=== PATIENT | female | born 1935 | race Caucasian/White ===

== ENCOUNTER 2016-11-09 07:39 | Day surgery (SDC) | payer MEDICARE, BC ==
[~2016-11-09 07:39] MED LIST: Bupivacaine 0.5% 50 ML MDV ONE; Isosulfan Blue 5 ML SDV ONE; Lidocaine 1% with EPINEPHrine 1:100,000 50 ML MDV ONE
[2016-11-09] MEDS ORDERED: Dextrose 5%-Lactated Ringers 1,000 ML IV SCH (08:00)
[2016-11-09] MEDS ORDERED: Midazolam 1 MG/ML 2 ML SDV ONE (09:37)
[2016-11-09] MEDS ORDERED: Propofol 200 MG/20 ML SDV ONE ×3 (09:37→11:30)
[2016-11-09] MEDS ORDERED: fentaNYL 100 MCG/2 ML SDV ONE (09:37)
[2016-11-09] MEDS ORDERED: Lactated Ringers 1,000 ML ONE (10:43)
[2016-11-09] MEDS ORDERED: Hydrochlorothiazide 25 MG Tab PO ONE (12:45)
[2016-11-09] MEDS ORDERED: Losartan 50 MG Tab PO ONE (12:45)
[2016-11-09 14:39] VITALS: BP 190/79
--- NOTE | 2016-11-12 15:59 | OR ---
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 OPERATIVE PROCEDURES: 1. Fine-needle aspiration of enlarged right axillary lymph nodes with ultrasound guidance x2 ([id number]). 2. Ultrasound-guided excisional biopsy, right breast mass ([id number]). ANESTHESIA: Local plus IV sedation. INDICATION FOR PROCEDURE: An 81-year-old female presenting with a radiologically suspicious mass in the right lateral breast. This also associated with two enlarged lymph nodes in the axilla. Plan is to retrieve fine-needle aspiration of the enlarged axillary lymph nodes as well as guidance ultrasound, ultrasound will also be used intraoperatively to identify the exact location of the mass that appeared to be somewhat within an area of fibrocystic disease laterally. Potential risks including bleeding, infection, and the need for additional treatment if malignancy is identified, were all reviewed, and the patient wishes to proceed. DETAILS OF PROCEDURE: The patient was taken to the operative room after IV sedation was administered. The right breast, axilla, and surrounding areas were prepped and draped. Using the ultrasound, the two enlarged axillary lymph nodes were identified and these were sampled with initially a 20-gauge needle followed by an 18-gauge needle under continued ultrasound guidance with the aspirating syringe. All the specimens were placed in Saccomanno solution. Following this, the location of the mass was identified and the area marked. The area was anesthetized with 1% lidocaine mixed with Marcaine and an oblique transversely oriented incision was made and carried down through the skin and subcutaneous tissue. The underlying mass was then identified and was easily palpable. This was fairly hard and quite suspicious for carcinoma. The deep plane of dissection did not violate the pectoralis major fascia, and the entire mass was grossly removed and soft tissues were then approximated with some 3- 0, 4-0 Vicryl stitch deep, and a 5-0 Vicryl subcuticular stitch. Dressing was applied. The patient was taken to the recovery room in satisfactory condition. David Torres MD /[id number]
--- NOTE | 2016-12-03 16:41 | US ---
ADDENDUM: Pathology shows invasive ductal carcinoma. This is concordant with breast imaging. BI-RADS 6: Known malignancy.
== END 2016-11-09 14:35 | disposition home or self-care (01) ==
LOC: JP.SDS 07:39
PROVIDERS: ATTEND Surgery
DX: D05.11 Intraductal carcinoma in situ of right breast (principal); I10 Essential (primary) hypertension; K21.9 Gastro-esophageal reflux disease without esophagitis; Z88.8 Allergy status to other drugs, medicaments and biological substances; Z91.018 Allergy to other foods; Z95.0 Presence of cardiac pacemaker
CPT/HCPCS: 19125; 38505; 76942; 76998; 88112; 88305; 88341; 88342; 88360; 88361; A9270; J2704; J3010; J7042; J7120; J2250; Q9968

== ENCOUNTER 2016-11-23 08:38 | Inpatient (IN) | payer MEDICARE, BC ==
[~2016-11-23 08:38] MED LIST changes: -Bupivacaine 0.5% 50 ML MDV ONE; +Dexamethasone 4 MG/ML SDV ONE; +Glycopyrrolate 0.2 MG/ML 5 ML MDV ONE; -Isosulfan Blue 5 ML SDV ONE; +Lactated Ringers 1,000 ML ONE; -Lidocaine 1% with EPINEPHrine 1:100,000 50 ML MDV ONE; +Neostigmine Methylsulfate 1 MG/ML 5 ML Syringe ONE; +Ondansetron 4 MG/2 ML SDV ONE; +Propofol 200 MG/20 ML SDV ONE; +Rocuronium 50 MG/5 ML Vial ONE; +Succinylcholine 200 MG/10 ML MDV ONE
[2016-11-23] MEDS ORDERED: Isosulfan Blue 5 ML SDV ONE (09:45)
[2016-11-23] MEDS ORDERED: Acetaminophen 500 MG Tab PO ONE (10:00)
[2016-11-23] MEDS: Dextrose 5%-Lactated Ringers 1,000 ML IV SCH (10:33)
[2016-11-23] MEDS ORDERED: ceFAZolin 2 GM in Sodium Chloride 0.9% 50 ML IV ONE (11:00)
[2016-11-23] MEDS ORDERED: Naloxone 0.4 MG/ML SDV IVPUSH PRN (12:04)
[2016-11-23] MEDS ORDERED: HYDROmorphone/Normal Saline 15 MG/30 ML PCA IV PRN (12:04)
[2016-11-23] MEDS ORDERED: Naloxone 0.4 MG/ML SDV IV PRN (12:06)
[2016-11-23] MEDS: Labetalol 20 MG/4 ML Syringe IVPUSH SCH (13:05)
[2016-11-23] MEDS ORDERED: Hydrochlorothiazide 25 MG Tab PO ONE (13:28)
[2016-11-23] MEDS ORDERED: Losartan 50 MG Tab PO ONE (13:28)
[2016-11-23] MEDS ORDERED: LORazepam 2 MG/ML MDV IVPUSH ONE (13:29)
[2016-11-23] MEDS ORDERED: hydrALAZINE 20 MG/ML SDV IVPUSH ONE (13:30)
[2016-11-23] MEDS ORDERED: Ondansetron 4 MG/2 ML SDV IVPUSH PRN (15:01)
[2016-11-23] MEDS ORDERED: Labetalol 20 MG/4 ML Syringe IVPUSH PRN ×2 (15:02→15:05)
[2016-11-23] MEDS ORDERED: hydrALAZINE 20 MG/ML SDV IVPUSH PRN (15:03)
--- NOTE | 2016-11-23 15:12 | PCM.CONS ---
H&P History of Present Illness - General Date of Service: 11/23/16 Source of Information: Patient, Old Records, RN Notes Reviewed History Limitations: Reports: No Limitations - History of Present Illness Initial Comments - Free Text/Narative: Ms. Esposito is an 81-year-old woman who has been asked to see by Dr. David Torres persistent and managing hypertension. Ms. Esposito underwent a right modified mastectomy earlier today by Dr. Torres, during the immediate postoperative period in the PAR was noted to have marked hypertension. When seen she was very uncomfortable with significant nausea, she had taken her morning beta rios but had not taken Cozaar or hydrochlorothiazide. She had received a dose of IV labetalol with no significant improvement in symptoms. She was given 10 mg of IV hydralazine as well as 0.5 mg of IV lorazepam for management of her nausea. After nausea improve she was given her usual doses of Cozaar and hydrochlorothiazide. With this blood pressure did come under good control and will be monitored after transfer to the medical surgical floor. - Related Data Allergies/Adverse Reactions: Allergies Allergy/AdvReac Type Severity Reaction Status Date / Time hydrocodone Allergy Cannot Verified 11/23/16 12:08 Remember strawberry [[place]] Allergy Hives Verified 11/23/16 09:13 codeine phosphate AdvReac Nausea and Verified 11/23/16 09:13 [From Tylenol-Codeine #3] Vomiting meperidine HCl [From Demerol] AdvReac Nausea and Verified 11/23/16 09:13 Vomiting nitrofurantoin AdvReac Nausea and Verified 11/23/16 09:13 Vomiting oxycodone HCl [From Roxicet] AdvReac Nausea and Verified 11/23/16 09:13 Vomiting sertraline AdvReac Diarrhea Verified 11/23/16 09:13 Home Medications: Home Meds Diphenoxylate HCl/Atropine [Diphenoxylate-Atrop 2.5-0.025] 1 - 2 tab PO QID PRN 07/09/13 [History] LORazepam [Ativan] 0.5 mg PO BID PRN 07/09/13 [History] Multivitamin [Multi-Vitamin Daily] 1 each PO DAILY 07/09/13 [History] Potassium Chloride [Klor-Con M20] 10 meq PO DAILY 07/28/15 [History] Warfarin Sliding Scale [Coumadin Sliding Scale] 1.25 mg PO MOFR 11/13/14 [ History] Calcium Carbonate/Vitamin D2 [Oyster Shell Calcium-Vit D Tab] 800 - 1,000 mg PO DAILY 11/15/14 [History] Warfarin [Coumadin] 2.5 mg PO SUTUWETHSA 11/15/14 [History] Pantoprazole Sodium [Protonix] 40 mg PO DAILY 01/14/15 [History] Losartan/Hydrochlorothiazide [Losartan-HCTZ 100-25 MG] 25 - 100 mg PO DAILY [History] Metoprolol Succinate 50 mg PO BID 11/09/16 [History] Triamcinolone Acetonide 1 film TOP TID 11/09/16 [History] Vitamin B Complex 0.5 tab PO DAILY 11/09/16 [History] Past Medical History HEENT History: Reports: Cataract, Hard of Hearing, Impaired Vision Cardiovascular History: Reports: CAD, High Cholesterol, Hypertension, Pacemaker , SOB on Exertion, Other (See Below) Other Cardiovascular History: mitral and tricuspid valve disease Respiratory History: Reports: SOB Other Respiratory History: na Gastrointestinal History: Reports: Cholelithiasis, Chronic Diarrhea, GERD, Hiatal Hernia, Irritable Bowel Syndrome, Other (See Below) Other Gastrointestinal History: esophageal stricture Genitourinary History: Reports: None 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 PHARMACY TECHNICIAN History: Reports: , Prolapsed Uterus Musculoskeletal History: Reports: Osteoarthritis, Osteoporosis Neurological History: Reports: None Psychiatric History: Reports: Anxiety Endocrine/Metabolic History: Reports: Osteoporosis, Other (See Below) Other Endocrine/Metabolic History: thyroid disease, mulyinodular goiter Hematologic History: Reports: Anesthesia Reaction, Anticoagulation Therapy Oncologic (Cancer) History: Reports: None Dermatologic History: Reports: None - Infectious Disease History Infectious Disease History: Reports: Chicken Pox - Past Surgical History Head Surgeries/Procedures: Reports: None HEENT Surgical History: Reports: Tonsillectomy Cardiovascular Surgical History: Reports: Pacer Respiratory Surgical History: Reports: None GI Surgical History: Reports: Cholecystectomy, Colonoscopy, EGD, Polypectomy Female Surgical History: Reports: Hysterectomy Endocrine Surgical History: Reports: Thyroid Biopsy Neurological Surgical History: Reports: None Musculoskeletal Surgical History: Reports: None Oncologic Surgical History: Reports: None Dermatological Surgical History: Reports: None Social & Family History - Family History Family Medical History: Noncontributory - Tobacco Use Smoking Status *Q: Never Smoker Second Hand Smoke Exposure: No - Caffeine Use Caffeine Use: Reports: None - Alcohol Use Days Per Week of Alcohol Use: 0 - Recreational Drug Use Recreational Drug Use: No - Living Situation & Occupation Living situation: Reports: , Alone Occupation: Retired H&P Review of Systems - Review of Systems: Review Of Systems: See Below General: Denies: Fever, Chills, Weakness HEENT: Reports: No Symptoms Pulmonary: Reports: No Symptoms Cardiovascular: Reports: No Symptoms Gastrointestinal: Reports: Nausea, Vomiting. Denies: Abdominal Pain Exam - Exam Exam: See Below - Vital Signs Vital Signs: Last Vital Signs Temp 96.4 F 11/23/16 14:30 Pulse 70 11/23/16 14:46 Resp 14 11/23/16 14:46 BP 145/62 H 11/23/16 14:46 Pulse Ox 93 L 11/23/16 14:57 Weight: 160 lb 0.008 oz - Exam General: Sedated HEENT: Hearing Intact, Mucosa Moist & [place], Normal Nasal Septum, Posterior Pharynx Clear, Pupils Equal Neck: Supple, Trachea Midline, +2 Carotid Pulse wo Bruit Lungs: Clear to Auscultation, Normal Respiratory Effort Cardiovascular: Regular Rate, Regular Rhythm, Normal S1, Normal S2. No: Systolic Murmur, Diastolic Murmur GI/Abdominal Exam: Normal Bowel Sounds, Soft, Non-Tender Extremities: Normal Inspection, Non-Tender, No Pedal Edema - Patient Data Lab Results Last 24 hrs: Laboratory Results - last 24 hr 11/23/16 11/23/16 11/23/16 Range/Units 09:05 09:05 09:05 WBC 8.5 (4.5-11.0) K/uL RBC 4.42 (3.30-5.50) M/uL Hgb 12.9 (12.0-15.0) g/dL Hct 38.0 (36.0-48.0) % MCV 86 (80-98) fL MCH 29 (27-31) pg MCHC 34 (32-36) % Plt Count 356 (150-400) K/uL PT 12.7 H (9.5-12.0) sec INR 1.18 (0.80-1.20) Sodium 140 (140-148) mmol/L Potassium 3.6 (3.6-5.2) mmol/L Chloride 105 (100-108) mmol/L Carbon Dioxide 24 (21-32) mmol/L Anion Gap 10.6 (5.0-14.0) mmol/L BUN 32 H (7-18) mg/dL Creatinine 1.5 H (0.6-1.0) mg/dL Est Cr Clr Drug Dosing 21.82 mL/min Estimated GFR (MDRD) 33 L (>60) Glucose 101 (74-106) mg/dL Calcium 9.5 (8.5-10.1) mg/dL Phosphorus 3.1 (2.5-4.9) mg/dL Magnesium 1.5 L (1.8-2.4) mg/dL Total Bilirubin 0.8 D (0.2-1.0) mg/dL AST 18 (15-37) U/L ALT 22 (12-78) U/L Alkaline Phosphatase 78 (46-116) U/L [id number] Pept 1314 H (5-450) pg/mL Total Protein 7.9 (6.4-8.2) g/dL Albumin 3.6 (3.4-5.0) g/dL Globulin 4.3 H (2.3-3.5) g/dL Albumin/Globulin Ratio 0.8 L (1.2-2.2) Result Diagrams: 11/23/16 09:05 11/23/16 09:05 Consult PN Assessment/Plan Procedures: Procedures ASSAY OF AMYLASE (07/10/13) ASSAY OF LIPASE (07/10/13) ASSAY OF MAGNESIUM (07/10/13) CLOSTRIDIUM AG IA (07/10/13) COMP SCREEN MAMMOGRAM ADD-ON (06/08/13) COMPLETE CBC AUTOMATED (07/10/13) COMPLETE CBC W/AUTO DIFF WBC (11/16/14) COMPREHEN METABOLIC PANEL (11/16/14) CULTURE SCREEN ONLY (11/15/14) DIAGNOSTIC COLONOSCOPY (01/15/15) ECHO GUIDE FOR BIOPSY (11/09/16) EGD BIOPSY SINGLE/MULTIPLE (11/15/14) EMERGENCY DEPT VISIT (03/26/16) EMERGENCY DEPT VISIT (11/17/14) EMERGENCY DEPT VISIT (11/17/14) EMERGENCY DEPT VISIT (07/10/13) EMERGENCY DEPT VISIT (07/10/13) EXCISION BREAST LESION (11/09/16) HEMOGLOBIN (03/26/16) HYDRATE IV INFUSION ADD-ON (07/10/13) INITIAL OBSERVATION CARE (07/10/13) LEUKOCYTE ASSESSMENT FECAL (07/10/13) METABOLIC PANEL TOTAL CA (07/10/13) NEEDLE BIOPSY LYMPH NODES (11/09/16) OCCULT BLOOD FECES (07/10/13) PROTHROMBIN TIME (03/26/16) REMOVAL OF NAIL BED (02/17/14) ROUTINE VENIPUNCTURE (03/26/16) STOOL CULTR AEROBIC BACT EA (07/10/13) THER/PROPH/DIAG INJ IV PUSH (07/10/13) THER/PROPH/DIAG INJ SC/IM (07/10/13) TRANSVAGINAL US NON-OB (12/13/14) ULTRASOUND BREAST LIMITED (11/04/16) URINALYSIS AUTO W/SCOPE (11/17/14) URINE CULTURE/COLONY COUNT (11/17/14) US EXAM PELVIC COMPLETE (12/13/14) US GUIDE INTRAOP (11/09/16) Problem List Initiated/Reviewed/Updated: Yes My Orders Last 24 Hours: My Active Orders 11/23/16 15:02 Labetalol [Normodyne] 10 mg IVPUSH Q4H PRN 11/23/16 15:03 hydrALAZINE [Apresoline] 5 mg IVPUSH Q4H PRN 11/23/16 21:00 Metoprolol Succinate [Toprol XL] 50 mg PO BID 11/24/16 09:00 Losartan/Hydrochlorothiazide [Losartan-HCTZ 100-25 MG] 25 - 100 mg PO DAILY Plan: ASSESSMENT AND RECOMMENDATIONS HYPERTENSION-uncontrolled hypertension in PAR, likely secondary to having missed morning doses of Cozaar and hydrochlorothiazide as well as discomfort related to severe nausea. Blood pressure improved after her nausea was controlled and she was given her usual doses of Cozaar and hydrochlorothiazide as well as IV labetalol and hydralazine. -Continue usual outpatient antihypertensive therapy including metoprolol, hydrochlorothiazide, and losartan. -When necessary labetalol and hydralazine as needed STATUS POST RIGHT MASTECTOMY Requesting Provider: SUNDEEP Date Consult Requested: 11/23/16 Reason for Consult: Hypertension Patient History Reviewed: Yes
[2016-11-23] MEDS: ceFAZolin 2 GM in Sodium Chloride 0.9% 50 ML IV SCH (16:59)
[2016-11-23] MEDS: Potassium Chloride 20 MEQ Tab.ER PO SCH (18:35)
[2016-11-23] MEDS: Pantoprazole 40 MG Tab.CR PO SCH (18:35)
[2016-11-23] MEDS: Acetaminophen 325 MG Tab PO PRN (18:35)
[2016-11-23] MEDS ORDERED: Metoprolol Succinate 50 MG Tab.ER PO SCH (21:00)
[2016-11-23] MEDS: LORazepam 0.5 MG Tab PO PRN (21:01)
[2016-11-23] MEDS: Metoprolol Tartrate 50 MG Tab PO SCH (21:02)
--- NOTE | 2016-11-24 00:43 | PCM.SN ---
- Free Text/Narrative Note: time : 2330 11/23/16; call from [address] [place] [address]; blood pressure o; resting comfortable, no complaints of pain or headache, blood pressure 170/ 80.p 60 a; hypertension p; continue to monitor. if blood pressure continues to increase or Mrs. Esposito has complaints, has PRN order for Hydralazine 5 mg IVP every 4 hours prn and Labetalol 10mg IVP every 4 hours prn., continue present plan of care..
[2016-11-24] MEDS: ceFAZolin 2 GM in Sodium Chloride 0.9% 50 ML IV SCH ×2 (01:20→10:41)
[2016-11-24] MEDS ORDERED: Furosemide 20 MG/2 ML VIAL IVPUSH STA (03:44)
[2016-11-24] MEDS: Dextrose 5%-Lactated Ringers 1,000 ML IV SCH (04:13)
[2016-11-24] MEDS ORDERED: traMADol 50 MG Tab PO PRN (07:43)
[2016-11-24] MEDS: Potassium Chloride 20 MEQ Tab.ER PO SCH (07:59)
[2016-11-24] MEDS: Metoprolol Tartrate 50 MG Tab PO SCH ×2 (07:59→20:01)
[2016-11-24] MEDS: Losartan 50 MG Tab PO SCH (08:00)
[2016-11-24] MEDS: Hydrochlorothiazide 25 MG Tab PO SCH (08:00)
[2016-11-24] MEDS: Pantoprazole 40 MG Tab.CR PO SCH (08:00)
[2016-11-24] MEDS ORDERED: Potassium Chloride 20 MEQ Tab.ER PO SCH (09:00)
--- NOTE | 2016-11-24 10:08 | PN ---
DATE OF SERVICE: 11/24/2016 SUBJECTIVE: Waqar is postop day 1. She states her pain is controlled. She did have difficulty voiding. She remains to have the Schmitt catheter in. No other concerns or questions related to surgery. She states she does have problems with leg cramping in her upper inner thighs and down front of both legs. She states it is a cramp where she cannot walk and she cannot just wait till the cramp relieves or until the cramp lets up and she is able to walk a little bit but she suggests this happens almost every night. The next concern she has is when she brushes her teeth, her lips burn. REVIEW OF SYSTEMS: Remainder of review of systems negative for any pertinent positives and negatives. OBJECTIVE: GENERAL: Waqar Esposito is an 81-year-old female. She is alert and orientated. VITAL SIGNS: TPR 98.1, 72, 16, and blood pressure 131/54. HEENT: Negative. NECK: Supple. HEART: Regular rate and rhythm. Her dressing is dry and intact. YESSI drains have put out 30 and 35 mL of a light pink drainage respectively. ABDOMEN: Soft and nontender. EXTREMITIES: Without peripheral edema. ASSESSMENT: Right modified radical mastectomy and inspection of sentinel lymph node biopsy for right breast cancer. Date of surgery 11/23/2016. PLAN: 1. Regular diet. 2. Saline lock IV if oral intake adequate. 3. Remove Schmitt on 11/25/2016 at 5 a.m. 4. Tramadol 50 mg q.4 hours p.r.n. pain. 5. 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 6. Check magnesium and phosphorus in regard to leg cramping. 7. We will schedule Oncology appointment for 12/02/2016. 8. Good pulmonary toilet encouraged. 9. We will evaluate p.r.n. or in a.m. 10.We will start Coumadin in a.m. Mallika Anna PA-C /[id number]
[2016-11-24] MEDS: Labetalol 20 MG/4 ML Syringe IVPUSH SCH ×2 (18:30→18:31)
[2016-11-24] MEDS: LORazepam 0.5 MG Tab PO PRN (20:00)
[2016-11-25] MEDS: Pantoprazole 40 MG Tab.CR PO SCH (07:36)
[2016-11-25] MEDS: Potassium Chloride 20 MEQ Tab.ER PO SCH (07:36)
--- NOTE | 2016-11-25 08:36 | PN ---
DATE OF SERVICE: 11/25/2016 SUBJECTIVE: Schmitt was removed at 5:00 a.m. She has not voided yet. Magnesium was a little bit low this morning. Her pain is controlled. She states she was up most of the night, had diarrhea, temp max was 99.8. Oral intake was adequate. REVIEW OF SYSTEMS: Remainder of review of systems negative for any pertinent positives and negatives. OBJECTIVE: GENERAL: Waqar Esposito is an 81-year-old female. VITAL SIGNS: TPR is 98.6, 73, 18. Blood pressure 177/71. HEENT: Negative. NECK: Supple. HEART: Regular rate and rhythm. LUNGS: Clear. Incision looks good. YESSI drains x2 intact. ABDOMEN: Negative. EXTREMITIES: Without peripheral edema. ASSESSMENT: Right modified radical mastectomy and inspection sentinel lymph node biopsy for right breast cancer. Date of surgery 11/23/2016. PLAN: 1. Mag oxide 400 mg p.o. daily. 2. Dressing off, may shower. 3. Resume Coumadin per home orders. 4. Teach to strip empty, measure, and record YESSI drains 4 times a day. 5. We will evaluate p.r.n. or in a.m. 6. Plan discharge in a.m. to go home with daughter. Mallika Anna PA-C /[id number]
[2016-11-25] MEDS: Metoprolol Tartrate 50 MG Tab PO SCH ×2 (09:44→21:57)
[2016-11-25] MEDS: Losartan 50 MG Tab PO SCH (09:44)
[2016-11-25] MEDS: Magnesium Oxide 400 MG Tab PO SCH (09:45)
[2016-11-25] MEDS: Hydrochlorothiazide 25 MG Tab PO SCH (09:45)
[2016-11-25] MEDS: Acetaminophen 325 MG Tab PO PRN (09:48)
[2016-11-25] MEDS ORDERED: hydrALAZINE 10 MG Tab PO ONE (12:48)
[2016-11-25] MEDS ORDERED: Warfarin 2.5 MG Tab PO SCH (13:00)
[2016-11-25] MEDS ORDERED: LORazepam 1 MG Tab PO ONE (15:45)
[2016-11-25] MEDS ORDERED: LORazepam 0.5 MG Tab PO ONE (15:45)
[2016-11-25] MEDS ORDERED: LORazepam 0.5 MG Tab PO PRN (16:48)
[2016-11-25] MEDS ORDERED: Zolpidem 5 MG Tab PO PRN (16:53)
--- NOTE | 2016-11-25 16:53 | PCM.CONSN ---
- General Info Date of Service: 11/25/16 Functional Status: Reports: Pain Controlled, Tolerating Diet, Ambulating - Review of Systems General: Denies: Fever, Chills Cardiovascular: Reports: No Symptoms Gastrointestinal: Reports: No Symptoms Genitourinary: Reports: No Symptoms Systems Review Comment:: Ms. Esposito is an 81-year-old woman with been asked to reevaluate because of of hypertension. She is status post right mastectomy done 2 days ago, I was asked to see her immediately after surgery because of uncontrolled hypertension. Blood pressure improved after she received IV labetalol as well as IV hydralazine and IV lorazepam for nausea. Blood pressures have been high, since then but today have been significantly elevated with a systolic pressure of greater than 200. She currently is treated with beta rios, ARB, and hydrochlorothiazide. She reports that she does feel somewhat anxious and has noted that this feeling contributes to elevated blood pressure in the past. Currently denies significant chest pain or pressure or shortness of breath. - Patient Data Vitals - Most Recent: Last Vital Signs Temp 98.2 F 11/25/16 14:43 Pulse 70 11/25/16 14:43 Resp 16 11/25/16 14:43 BP 218/76 H 11/25/16 14:43 Pulse Ox 96 11/25/16 14:43 Weight - Most Recent: 160 lb 0.008 oz I&O - Last 24 Hours: Intake & Output 11/25/16 11/25/16 11/25/16 06:59 14:59 22:59 Intake Total 290 510 Output Total 697 490 60 Balance -407 20 -60 Lab Results Last 24 Hours: Laboratory Results - last 24 hr 11/23/16 Range/Units 09:05 CA 27-29 19 (0-40) U/mL Med Orders - Current: Current Medications Acetaminophen (Tylenol) 650 mg PO Q6H PRN PRN Reason: PAIN Last Admin: 11/25/16 09:48 Dose: 650 mg Hydralazine HCl (Apresoline) 5 mg IVPUSH Q4H PRN PRN Reason: Hypertension Hydralazine HCl (Apresoline) 10 mg PO Q6H LILI Hydrochlorothiazide (Hydrochlorothiazide) 25 mg PO DAILY LILI Last Admin: 11/25/16 09:45 Dose: 25 mg Dextrose/Lactated Ringer's (Dextrose 5%-Lactated Ringers) 1,000 mls @ 100 mls/ hr IV ASDIRECTED [facility] Last Admin: 11/24/16 04:13 Dose: 100 mls/hr Labetalol HCl (Normodyne) 10 mg IVPUSH Q4H PRN; Protocol PRN Reason: Hypertension Loperamide HCl (Imodium) 2 mg PO Q4H PRN PRN Reason: Diarrhea Lorazepam (Ativan) 0.5 mg PO BID PRN PRN Reason: ANXIETY Last Admin: 11/24/16 20:00 Dose: 0.5 mg Lorazepam (Ativan) 0.5 mg PO Q4H PRN PRN Reason: Anxiety Losartan Potassium (Cozaar) 100 mg PO DAILY [facility] Last Admin: 11/25/16 09:44 Dose: 100 mg Magnesium Oxide (Magnesium Oxide) 400 mg PO DAILY [facility] Last Admin: 11/25/16 09:45 Dose: 400 mg Metoprolol Tartrate (Lopressor) 50 mg PO BID [facility] Last Admin: 11/25/16 09:44 Dose: 50 mg Naloxone HCl (Narcan) 0.1 mg IV ASDIRECTED PRN PRN Reason: decreased respiratory rate Ondansetron HCl (Zofran) 4 mg IVPUSH Q4H PRN PRN Reason: NAUSEA Last Admin: 11/23/16 16:59 Dose: 4 mg Pantoprazole Sodium (Protonix) 40 mg PO ACBREAKFAST [facility] Last Admin: 11/25/16 07:36 Dose: 40 mg Potassium Chloride (Klor-Con M20) 20 meq PO DAILY@0800 [facility] Last Admin: 11/25/16 07:36 Dose: 20 meq Tramadol HCl (Ultram) 50 mg PO Q4H PRN PRN Reason: Pain Warfarin Sodium (Coumadin) 2.5 mg PO SuTuWeThSa@1300 [facility] Last Admin: 11/25/16 12:56 Dose: 2.5 mg Warfarin Sodium (Coumadin) 1.25 mg PO MoFr@1300 [facility] Discontinued Medications Acetaminophen (Tylenol Extra Strength) 1,000 mg PO ONETIME ONE Stop: 11/23/16 10:01 Last Admin: 11/23/16 10:36 Dose: 1,000 mg Dexamethasone (Dexamethasone) Confirm Administered Dose 4 mg .ROUTE .STK-MED ONE Stop: 11/23/16 08:20 Fentanyl Citrate (Fentanyl 0.05 Mg/Ml Vial) Confirm Administered Dose 50 mcg .ROUTE .STK-MED ONE Stop: 11/23/16 08:20 Furosemide (Lasix) 10 mg IVPUSH ONETIME STA Stop: 11/24/16 03:45 Last Admin: 11/24/16 04:16 Dose: 10 mg Glycopyrrolate (Robinul) Confirm Administered Dose 1 mg .ROUTE .STK-MED ONE Stop: 11/23/16 08:20 Hydralazine HCl (Apresoline) 10 mg IVPUSH ONETIME ONE Stop: 11/23/16 13:31 Last Admin: 11/23/16 13:20 Dose: 10 mg Hydralazine HCl (Apresoline) 10 mg PO ONETIME ONE Stop: 11/25/16 12:49 Last Admin: 11/25/16 12:55 Dose: 10 mg Hydrochlorothiazide (Hydrochlorothiazide) 25 mg PO ONETIME ONE Stop: 11/23/16 13:29 Last Admin: 11/23/16 13:38 Dose: 25 mg Hydromorphone HCl (Dilaudid Scoring Machine Operator 15 Mg In Ns 30 Ml) 0 mg IV ASDIRECTED PRN; Protocol PRN Reason: Pain Last Admin: 11/23/16 12:10 Dose: 0.3 mg Cefazolin Sodium 2 gm/ Sodium (Chloride) 50 mls @ 100 mls/hr IV ONCALL ONE Stop: 11/23/16 11:29 Last Admin: 11/23/16 10:45 Dose: 100 mls/hr Lactated Ringer's (Ringers, Lactated) Confirm Administered Dose 1,000 mls @ as directed .ROUTE .STK-MED ONE Stop: 11/23/16 08:31 Lactated Ringer's (Ringers, Lactated) Confirm Administered Dose 1,000 mls @ as directed .ROUTE .STK-MED ONE Stop: 11/23/16 08:31 Cefazolin Sodium 2 gm/ Sodium (Chloride) 50 mls @ 100 mls/hr IV Q8H LILI Stop: 11/24/16 10:29 Last Admin: 11/24/16 10:41 Dose: 100 mls/hr Isosulfan Blue (Lymphazurin 1%) Confirm Administered Dose 5 ml .ROUTE .STK-MED ONE Stop: 11/23/16 09:46 Last Admin: 11/23/16 11:39 Dose: 5 ml Labetalol HCl (Normodyne) 5 - 10 mg IVPUSH Q5M LILI PRN Reason: Protocol Stop: 11/23/16 13:30 Last Admin: 11/24/16 18:31 Dose: Not Given Labetalol HCl (Normodyne) 5 - 10 mg IVPUSH Q1H PRN PRN Reason: SBP>=165 OR DBP >=95 Lorazepam (Ativan) 0.5 mg IVPUSH ONETIME ONE Stop: 11/23/16 13:30 Last Admin: 11/23/16 13:40 Dose: 0.5 mg Lorazepam (Ativan) 0.5 mg PO ONETIME ONE Stop: 11/25/16 15:46 Last Admin: 11/25/16 16:17 Dose: 0.5 mg Losartan Potassium (Cozaar) 100 mg PO ONETIME ONE Stop: 11/23/16 13:29 Last Admin: 11/23/16 13:39 Dose: 100 mg Metoprolol Succinate (Toprol Xl) 50 mg PO BID [facility] Neostigmine Methylsulfate (Neostigmine) Confirm Administered Dose 5 mg .ROUTE .STK-MED ONE Stop: 11/23/16 08:20 Non-Formulary Medication (Losartan/Hydrochlorothiazide [Losartan-Hctz 100-25 Mg] ) 25 - 100 mg PO DAILY [facility] Ondansetron HCl (Zofran) Confirm Administered Dose 4 mg .ROUTE .STK-MED ONE Stop: 11/23/16 08:20 Ondansetron HCl (Zofran) Confirm Administered Dose 4 mg .ROUTE .STK-MED ONE Stop: 11/23/16 08:30 Propofol (Diprivan 20 Ml) Confirm Administered Dose 200 mg .ROUTE .STK-MED ONE Stop: 11/23/16 08:20 Rocuronium [place] (Zemuron) Confirm Administered Dose 50 mg .ROUTE .STK-MED ONE Stop: 11/23/16 08:20 Succinylcholine Chloride (Quelicin) Confirm Administered Dose 200 mg .ROUTE .STK -MED ONE Stop: 11/23/16 08:20 - Exam Quality Assessment: DVT Prophylaxis General: Alert, Oriented, Cooperative, No Acute Distress Lungs: Clear to Auscultation, Normal Respiratory Effort Cardiovascular: Regular Rate, Regular Rhythm, No Murmurs GI/Abdominal Exam: Normal Bowel Sounds, Soft, Non-Tender, No Distention Extremities: Normal Inspection, Normal Range of Motion, Non-Tender, No Pedal Edema Skin: Warm, Dry, Intact Consult PN Assessment/Plan Procedures: Procedures ASSAY OF AMYLASE (07/10/13) ASSAY OF LIPASE (07/10/13) ASSAY OF MAGNESIUM (07/10/13) CLOSTRIDIUM AG IA (07/10/13) COMP SCREEN MAMMOGRAM ADD-ON (06/08/13) COMPLETE CBC AUTOMATED (07/10/13) COMPLETE CBC W/AUTO DIFF WBC (11/16/14) COMPREHEN METABOLIC PANEL (11/16/14) CULTURE SCREEN ONLY (11/15/14) DIAGNOSTIC COLONOSCOPY (01/15/15) ECHO GUIDE FOR BIOPSY (11/09/16) EGD BIOPSY SINGLE/MULTIPLE (11/15/14) EMERGENCY DEPT VISIT (03/26/16) EMERGENCY DEPT VISIT (11/17/14) EMERGENCY DEPT VISIT (11/17/14) EMERGENCY DEPT VISIT (07/10/13) EMERGENCY DEPT VISIT (07/10/13) EXCISION BREAST LESION (11/09/16) HEMOGLOBIN (03/26/16) HYDRATE IV INFUSION ADD-ON (07/10/13) INITIAL OBSERVATION CARE (07/10/13) LEUKOCYTE ASSESSMENT FECAL (07/10/13) METABOLIC PANEL TOTAL CA (07/10/13) NEEDLE BIOPSY LYMPH NODES (11/09/16) OCCULT BLOOD FECES (07/10/13) PROTHROMBIN TIME (03/26/16) REMOVAL OF NAIL BED (02/17/14) ROUTINE VENIPUNCTURE (03/26/16) STOOL CULTR AEROBIC BACT EA (07/10/13) THER/PROPH/DIAG INJ IV PUSH (07/10/13) THER/PROPH/DIAG INJ SC/IM (07/10/13) TRANSVAGINAL US NON-OB (12/13/14) ULTRASOUND BREAST LIMITED (11/04/16) URINALYSIS AUTO W/SCOPE (11/17/14) URINE CULTURE/COLONY COUNT (11/17/14) US EXAM PELVIC COMPLETE (12/13/14) US GUIDE INTRAOP (11/09/16) Problem List Initiated/Reviewed/Updated: Yes My Orders Last 24 Hours: My Active Orders 11/25/16 16:48 LORazepam [Ativan] 0.5 mg PO Q4H PRN 11/25/16 17:00 hydrALAZINE [Apresoline] 10 mg PO Q6H Plan: ASSESSMENT AND RECOMMENDATIONS HYPERTENSION-systolic pressure elevated again today greater than 200. -Continue usual outpatient antihypertensive therapy including metoprolol, hydrochlorothiazide, and losartan. -Hydralazine 10 mg by mouth every 6 hours -Lorazepam 0.5 mg by mouth every 4 hours as needed for anxiety STATUS POST RIGHT MASTECTOMY
[2016-11-25] MEDS ORDERED: Ondansetron 4 MG Tab.DIS PO PRN (17:01)
[2016-11-25] MEDS: hydrALAZINE 10 MG Tab PO SCH ×2 (17:35→22:02)
[2016-11-25] MEDS: Loperamide 2 MG Cap PO PRN (18:18)
[2016-11-26] MEDS: hydrALAZINE 10 MG Tab PO SCH (04:54)
[2016-11-26 07:17] VITALS: BP 176/75
[2016-11-26] MEDS: Losartan 50 MG Tab PO SCH (08:18)
[2016-11-26] MEDS: Hydrochlorothiazide 25 MG Tab PO SCH (08:18)
[2016-11-26] MEDS: Potassium Chloride 20 MEQ Tab.ER PO SCH (08:19)
[2016-11-26] MEDS: Metoprolol Tartrate 50 MG Tab PO SCH (08:19)
[2016-11-26] MEDS: Pantoprazole 40 MG Tab.CR PO SCH (08:21)
[2016-11-26] MEDS: Magnesium Oxide 400 MG Tab PO SCH (08:21)
[2016-11-26] MEDS: Loperamide 2 MG Cap PO PRN (09:12)
--- NOTE | 2016-11-27 00:24 | DISCH ---
ADMISSION DIAGNOSES: Right breast cancer, hypertension, irritable bowel syndrome, chronic atrial fib, chronic anticoagulation therapy, osteoporosis, mitral valve insufficiency, atrial valve insufficiency, pulmonary valve disorders, multinodular goiter, history of pacemaker, pulmonary nodules, thyroid mass, symptomatic bradycardia, hyperlipidemia. DISCHARGE DIAGNOSIS: Right modified radical mastectomy and inspection of sentinel lymph node biopsy for right breast cancer. Date of surgery 11/23/2016. HISTORY: Waqar Esposito had a right breast lump with a fine-needle biopsy which indicated cancer cells. After preoperative evaluation, discussion of possible risks and possible complications, she wished to proceed with surgical procedure. HOSPITAL COURSE: Waqar had her surgery on 11/23/2016. She had no operative complications. On postop day 1, she had difficulty with hypertension. She did have an Internal Med consult. Her pain was well managed and her activity was good and she was started on a regular diet. On postop day 2, her Schmitt catheter was removed and she did void. She was started on magnesium oxide for leg cramping, which has been ongoing and the postop teaching was started regarding her care of her YESSI drains. On 11/25/2016, she continued to progress well with the exception of elevated blood pressure. She was started on Apresoline 10 mg every 6 hours in addition to her Cozaar and Lopressor. Her blood pressure did decrease. The pain was well managed. Activity was good and she was ready to be discharged to home on 11/26/2016. PHYSICAL EXAMINATION: GENERAL: Waqar Esposito is an 81-year-old female. VITAL SIGNS: Height is 5 feet 1 inch, weight is 160 pounds. TPR 99.7, 83, 18. Blood pressure 176/75. HEENT: Negative. NECK: Supple. HEART: Regular rate and rhythm. LUNGS: Clear. BREASTS: Right mastectomy site, she has the YESSI drains that are intact draining a light pink serous drainage of 85 and 130 mL respectively. Hannah intact. No hematoma or drainage from stapled incision. EXTREMITIES: Without peripheral edema. ABDOMEN: Soft and nontender. DISPOSITION: Discharged to home. CONDITION: Stable and improving. FOLLOWUP APPOINTMENT: With David Torres MD at the [facility] on 12/02/2016 at 1 p.m. HOME MEDICATIONS: 1. Mag oxide 400 mg p.o. daily, #100. 2. Apresoline 10 mg oral q.6 hours #120. 3. Tramadol 50 mg q.4 hours p.r.n. pain #30. 4. She is to resume her home medications as she was taking prior to admission. 5. Calcium carbonate 800-1000 mg oral daily. 6. Diphenoxylate HCL atropine 1-2 every 4 hours p.r.n. diarrhea. 7. Ativan 0.5 mg oral b.i.d. anxiety. 8. Losartan HCTZ 100/25 one daily. 9. Metoprolol succinate 50 mg twice daily. 10.Multivitamin one daily. 11.Protonix 40 mg oral daily. 12.Klor-Con 20 mEq oral daily. 13.Triamcinolone cream one, three times a day p.r.n. to rash. 14.Vitamin B complex 0.5 mg oral daily. 15.Warfarin 1.25 mg oral every Wednesday and Wednesday and warfarin 2.5 mg oral Wednesday, Wednesday, Wednesday, , and Wednesday. DISCHARGE DIET: Usual diet as tolerated. Drink 8 to 10 glasses of water a day. DISCHARGE INSTRUCTIONS: No lifting greater than 10 pounds for 6 weeks. Activity, walk 8 times daily. Driving, do not drive on pain medication. Shower bathing, may shower. Notify provider if any fever, increased pain, nausea, or vomiting. Keep site clean and dry. Wound incision care. Strip, empty, measure, and record YESSI drains 4 times a day and bring record of drainage to clinic. SPECIAL INSTRUCTION: Use incentive spirometer 10 times every hour while awake.
[2016-11-27] MEDS ORDERED: Warfarin 2.5 MG Tab PO SCH (13:00)
--- NOTE | 2016-11-30 13:10 | OR ---
DATE OF PROCEDURE: 11/23/2016 PREOPERATIVE DIAGNOSIS: Carcinoma of right breast. POSTOPERATIVE DIAGNOSIS: Carcinoma of right breast with sentinel lymph nodes negative for metastatic disease. OPERATIVE PROCEDURES: 1. Right modified radical mastectomy with sentinel lymph node biopsy (89826). 2. Injection procedure for identification of sentinel lymph nodes ([id number]). ANESTHESIA: General. UNMANNED EQUIPMENT OPERATOR: Mallika Anna PA-C. 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 After preoperative evaluation and discussion, she wished to proceed with a mastectomy procedure. Potential risks including bleeding, infection, local or distant tumor recurrence, need for additional treatment depending on the pathologic findings, as well as remote possibility of cardiopulmonary, septic, or hemorrhagic complications leading to , and the patient wishes to proceed. DETAILS OF PROCEDURE: The patient was taken to the operating room and placed in the supine position. After general endotracheal anesthesia was induced, 4 mL of Isosulfan blue dye was then placed in the subdermal skin adjacent to the biopsy site. Following this, the right breast, axilla, and surrounding areas were prepped and draped. A standard elliptical incision was made around the nipple areolar complex and widely away from the biopsy site. It was carried down through the skin and subcutaneous tissue. Subcutaneous flaps were then raised superiorly, inferolaterally, and medially to the usual extent. The dissection was then continued down towards the right axilla. Following the blue-stained lymphatics, this led to a group of nodes that had some blue dye within them. This along with some adjacent lymphatic tissue was then excised and sent for a sentinel node analysis. The pathology reported no evidence of metastatic disease within the sentinel lymph nodes. At that point, the breast was reflected off the chest wall in continuity with pectoralis major fascia and delivered from the field. The area was inspected. No bleeding or other problems were noted. Two Jose Francisco-Lora drains were then placed through a stab wound inferior to the main incision and the incision was then closed with some 3-0 Vicryl stitch deep and halle for the skin. Drains were affixed with some 3-0 Vicryl as well and the patient was taken to the recovery room in satisfactory condition. There were no evident complications. The physician speech language pathologist assistant, Mallika Anna PA-C, played an essential role in assisting in this case, helping to position the patient, to retract structures as needed, as well as suturing and cutting sutures when indicated. Her presence improved the patient's safety and decreased operative time. David Torres MD /[id number]
== END 2016-11-26 12:30 | disposition home or self-care (01) | DRG 581 ==
LOC: JP.SDS 08:38 → JP.SDSSCHI 08:38 → JP.2SS 11:50 → EDSTATUS 14:10
PROVIDERS: ADMIT Surgery; ATTEND Surgery
PROC: 0HTT0ZZ Resection of Right Breast, Open Approach (ICD-10-PCS; principal; 2016-11-23)
PROC: 07B50ZX Excision of Right Axillary Lymphatic, Open Approach, Diagnostic (ICD-10-PCS; 2016-11-23)
DX: C50.911 Malignant neoplasm of unspecified site of right female breast (principal); I10 Essential (primary) hypertension; I48.91 Unspecified atrial fibrillation; E04.2 Nontoxic multinodular goiter; R91.8 Other nonspecific abnormal finding of lung field; E07.9 Disorder of thyroid, unspecified; R00.1 Bradycardia, unspecified; E78.5 Hyperlipidemia, unspecified; I25.10 Atherosclerotic heart disease of native coronary artery without angina pectoris; E78.00 Pure hypercholesterolemia, unspecified; F41.9 Anxiety disorder, unspecified; Z79.01 Long term (current) use of anticoagulants; Z88.8 Allergy status to other drugs, medicaments and biological substances; Z79.899 Other long term (current) drug therapy; Z95.0 Presence of cardiac pacemaker
CPT/HCPCS: 36415; 80053; 83735; 83880; 84100; 85027; 85610; 86300; 88307; 88331; 88341; 88342; 93005; 97161-GP; A9270-GY; J0330; J0360; J0690; J1100; J1170; J1940; J2060; J2405; J2704; J2710; J3010; J7042; J7050; J7120; Q9968

== ENCOUNTER 2016-11-29 11:30 | Emergency (ER) | payer MEDICARE, BC ==
[2016-11-29 12:11] VITALS: BP 197/69
--- NOTE | 2016-11-29 12:41 | EDM.PDOC ---
ED HPI GENERAL MEDICAL PROBLEM - General Chief Complaint: General Stated Complaint: SWELLING/HAD SURGERY Time Seen by Provider: 11/29/16 12:15 Source of Information: Reports: Patient, Family History Limitations: Reports: No Limitations - History of Present Illness INITIAL COMMENTS - FREE TEXT/NARRATIVE: Patient presents today with increase of edema and pain to medial right breast mastectomy incision. YESSI drain plugged, no drainage for 8 hours. Patient denies fever, chills, nausea. Onset: Today Right Arm Pain Score (Numeric/FACES): 0 - Related Data Allergies Allergy/AdvReac Type Severity Reaction Status Date / Time hydrocodone Allergy Cannot Verified 11/29/16 12:15 Remember strawberry [[place]] Allergy Hives Verified 11/29/16 12:15 codeine phosphate AdvReac Nausea and Verified 11/29/16 12:15 [From Tylenol-Codeine #3] Vomiting meperidine HCl [From Demerol] AdvReac Nausea and Verified 11/29/16 12:15 Vomiting nitrofurantoin AdvReac Nausea and Verified 11/29/16 12:15 Vomiting oxycodone HCl [From Roxicet] AdvReac Nausea and Verified 11/29/16 12:15 Vomiting sertraline AdvReac Diarrhea Verified 11/29/16 12:15 Home Meds: Home Meds Diphenoxylate HCl/Atropine [Diphenoxylate-Atrop 2.5-0.025] 1 - 2 tab PO QID PRN 07/09/13 [History] LORazepam [Ativan] 0.5 mg PO BID PRN 07/09/13 [History] Multivitamin [Multi-Vitamin Daily] 1 each PO DAILY 07/09/13 [History] Potassium Chloride [Klor-Con M20] 20 meq PO DAILY 11/13/14 [History] Warfarin Sliding Scale [Coumadin Sliding Scale] 1.25 mg PO MOFR 11/13/14 [ History] Calcium Carbonate/Vitamin D2 [Oyster Shell Calcium-Vit D Tab] 800 - 1,000 mg PO DAILY 11/15/14 [History] Warfarin [Coumadin] 2.5 mg PO SUTUWETHSA 11/15/14 [History] Pantoprazole Sodium [Protonix] 40 mg PO DAILY 01/14/15 [History] Losartan/Hydrochlorothiazide [Losartan-HCTZ 100-25 MG] 25 - 100 mg PO DAILY [History] Metoprolol Succinate 50 mg PO BID 11/09/16 [History] Triamcinolone Acetonide 1 film TOP TID 11/09/16 [History] Vitamin B Complex 0.5 tab PO DAILY 11/09/16 [History] Magnesium Oxide 400 mg PO DAILY #100 tablet 11/26/16 [Rx] hydrALAZINE [Apresoline] 10 mg PO Q6H #120 tablet 11/26/16 [Rx] traMADol [Ultram] 50 mg PO Q4H PRN #30 tablet 11/26/16 [Rx] Past Medical History HEENT History: Reports: Cataract, Hard of Hearing, Impaired Vision Cardiovascular History: Reports: CAD, High Cholesterol, Hypertension, Pacemaker , SOB on Exertion, Other (See Below) Other Cardiovascular History: mitral and tricuspid valve disease Respiratory History: Reports: SOB Other Respiratory History: na Gastrointestinal History: Reports: Cholelithiasis, Chronic Diarrhea, GERD, Hiatal Hernia, Irritable Bowel Syndrome, Other (See Below) Other Gastrointestinal History: esophageal stricture Genitourinary History: Reports: None 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: , Prolapsed Uterus Musculoskeletal History: Reports: Osteoarthritis, Osteoporosis Neurological History: Reports: None Psychiatric History: Reports: Anxiety Endocrine/Metabolic History: Reports: Osteoporosis, Other (See Below) Other Endocrine/Metabolic History: thyroid disease, mulyinodular goiter Hematologic History: Reports: Anesthesia Reaction, Anticoagulation Therapy Oncologic (Cancer) History: Reports: Breast Dermatologic History: Reports: None - Infectious Disease History Infectious Disease History: Reports: Chicken Pox - Past Surgical History Head Surgeries/Procedures: Reports: None HEENT Surgical History: Reports: Tonsillectomy Cardiovascular Surgical History: Reports: Pacer Respiratory Surgical History: Reports: None GI Surgical History: Reports: Cholecystectomy, Colonoscopy, EGD, Polypectomy Female Surgical History: Reports: Hysterectomy Endocrine Surgical History: Reports: Thyroid Biopsy Neurological Surgical History: Reports: None Musculoskeletal Surgical History: Reports: None Oncologic Surgical History: Reports: Mastectomy Dermatological Surgical History: Reports: None Social & Family History - Family History Family Medical History: Noncontributory - Tobacco Use Smoking Status *Q: Never Smoker Second Hand Smoke Exposure: No - Caffeine Use Caffeine Use: Reports: None - Alcohol Use Days Per Week of Alcohol Use: 0 - Recreational Drug Use Recreational Drug Use: No - Living Situation & Occupation Living situation: Reports: , Alone Occupation: Retired ED ROS GENERAL - Review of Systems Review Of Systems: See Below Constitutional: Reports: Weakness. Denies: Fever, Chills, Malaise HEENT: Reports: No Symptoms Respiratory: Denies: Shortness of Breath, Wheezing, Cough, Sputum Cardiovascular: Denies: Chest Pain, Blood Pressure Problem, Dyspnea on Exertion , Edema, Lightheadedness, Palpitations, PND, Syncope Endocrine: Reports: No Symptoms GI/Abdominal: Reports: No Symptoms : Reports: No Symptoms Musculoskeletal: Reports: Shoulder Pain, Other (Status post right mastectomy) Skin: Reports: Other (redness without erythema or fluctuance to right medial breast incision, tenderness noted. ) Neurological: Reports: No Symptoms Psychiatric: Reports: No Symptoms Hematologic/Lymphatic: Reports: No Symptoms Immunologic: Reports: No Symptoms ED EXAM, GENERAL - Physical Exam Exam: See Below Free Text/Narrative:: Waqar is an alert, oriented and pleasant 81 year old female who had a right mastectomy with YESSI drain placement x 2 on . She reports no drainage from drain #2 for at least 8 hours. It was noted the drain was plugged, tubing milked and new bulb placed. Drain began working well. Slight area of redness noted to medial incision without erythema or fluctuance. Areas of redness marked with a skin marker. Follow up appointment with Dr. Jannet Torres on 12/02/16. Exam Limited By: No Limitations General Appearance: Alert, WD/WN, No Apparent Distress Eye Exam: Bilateral Eye: EOMI, PERRL Ears: Normal External Exam, Normal Canal, Hearing Grossly Normal, Normal TMs Ear Exam: Bilateral Ear: Auricle Normal, Canal Normal, TM normal Nose: Normal Inspection, Normal Mucosa, No Blood Throat/Mouth: Normal Inspection, Normal Lips, Normal Oropharynx, Normal Voice, No Airway Compromise Head: Atraumatic, Normocephalic Neck: Normal Inspection, Supple, Non-Tender, Full Range of Motion. No: Lymphadenopathy (R), Lymphadenopathy (L) Respiratory/Chest: No Respiratory Distress, Lungs Clear, Normal Breath Sounds, No Accessory Muscle Use, Chest Non-Tender Cardiovascular: Normal Peripheral Pulses, Regular Rate, Rhythm, No Edema, No Gallop, No Murmur, No Rub Peripheral Pulses: 2+: Radial (L), Radial (R), Dorsalis Pedis (L), Dorsalis Pedis (R) GI/Abdominal: Normal Bowel Sounds, Soft, Non-Tender, No Organomegaly, No Distention, No Abnormal Bruit, No Mass Back Exam: Normal Inspection, Full Range of Motion. No: CVA Tenderness (R), CVA Tenderness (L) Extremities: Normal Inspection, Normal Range of Motion, Non-Tender, No Pedal Edema, Normal Capillary Refill Neurological: Alert, Oriented, CN II-XII Intact, Normal Cognition, Normal Gait, No Motor/Sensory Deficits Psychiatric: Normal Affect, Normal Mood Skin Exam: Warm, Dry, Intact, No Rash, Wound/Incision, Other (Right mastectomy incision intact, redness noted to medial incision line, areas marked with skin marker. No fluctuance or drainage. Tenderness with palpation to areas of redness. ). No: Erythema, Increased Warmth Lymphatic: No Adenopathy ED GENERAL MEDICAL PROCEDURES - Additional/Other Procedure(s) Other (Free Text) Procedure(s): YESSI bulb #2 replaced using sterile technique without difficulty, good suction noted. Course - Vital Signs Last Recorded V/S: Last Vital Signs Temp 36.4 C 11/29/16 12:10 Pulse 81 11/29/16 12:10 Resp 16 11/29/16 12:10 BP 197/69 H 11/29/16 12:10 Pulse Ox 97 11/29/16 12:10 - Re-Assessments/Exams Free Text/Narrative Re-Assessment/Exam: 11/29/16 12:50 Education on good hand washing, care of incision, continued documentation of YESSI drain provided to patient, her son and daughter in law. All Questions answered. Departure - Departure Time of Disposition: 12:49 Disposition: Home, Self-Care 01 Condition: Good Clinical Impression: Status post right mastectomy, YESSI drain, broken - Discharge Information Instructions: Total or Modified Radical Mastectomy, Care After Referrals: Shahram Hirsch MD [Primary Care Provider] - Forms: ED Department Discharge Additional Instructions: Your YESSI drain was plugged today, we have milked the drain and it is working now. We have also replaced the bulb. Continue to track your drainage. Wash you hands prior to handling of the YESSI drains or being near your incision. There is a small area of redness around your incision. This area was marked with a skin marker to note if the area spreads or not. Take the Septra DS 1 tablet by mouth twice per day for 7 days. Follow up with Dr. Torres as scheduled on 12/02/16. Return to clinic earlier for issues, concerns or any worsening. Keep yourself hydrated, eat healthy and take acteminophen (tylenol) as needed for pain. - Problem List Review Problem List Initiated/Reviewed/Updated: Yes - Assessment/Plan Assessment:: YESSI drain plugged, new bulb placed to #2 YESSI. Incision has redness without erythema or fluctuance to medial end. Dr. Clari Torres notified of assessment and patient status. Plan: YESSI drain was plugged today, we have milked the drain and it is working now. We have also replaced the bulb. Patient will continue to track drainage. Hand washing education and care of incision provided. There is a small area of redness around incision. This area was marked with a skin marker to note if the area spreads or not. Take the Septra DS 1 tablet by mouth twice per day for 7 days. Follow up with Dr. Torres as scheduled on 12/02/16. Return to clinic earlier for issues, concerns or any worsening. Keep hydrated, eat healthy and take acteminophen (tylenol) as needed for pain.
== END 2016-11-29 13:26 | disposition home or self-care (01) ==
LOC: JP.ED 11:30
DX: T85.41XA Breakdown (mechanical) of breast prosthesis and implant, initial encounter (principal); I25.10 Atherosclerotic heart disease of native coronary artery without angina pectoris; E78.00 Pure hypercholesterolemia, unspecified; I10 Essential (primary) hypertension; K21.9 Gastro-esophageal reflux disease without esophagitis; M19.90 Unspecified osteoarthritis, unspecified site; Z90.11 Acquired absence of right breast and nipple; M81.0 Age-related osteoporosis without current pathological fracture; Z79.01 Long term (current) use of anticoagulants; Z79.899 Other long term (current) drug therapy; Z88.8 Allergy status to other drugs, medicaments and biological substances; Z88.5 Allergy status to narcotic agent; Z88.6 Allergy status to analgesic agent
CPT/HCPCS: 99283

== ENCOUNTER 2016-12-13 15:40 | Emergency (ER) | payer MEDICARE, BC ==
[2016-12-13 16:07] VITALS: BP 212/72
--- NOTE | 2016-12-13 16:33 | EDM.PDOC ---
ED HPI GENERAL MEDICAL PROBLEM - General Chief Complaint: General Stated Complaint: DRAINAGE ON RIGHT BREAST AREA Time Seen by Provider: 12/13/16 16:15 Source of Information: Reports: Patient History Limitations: Reports: No Limitations - History of Present Illness INITIAL COMMENTS - FREE TEXT/NARRATIVE: 81-year-old female had a right mastectomy within the last 3 weeks, went to [facility] this morning applying more pressure to the surgical site with a pushup type brought and padding. When she got home the padding was soaked with fluid and she noticed a small blister on the skin. It was not malodorous, it appeared clear or serosanguineous. She is unsure where in the incision that the fluid came from. There is no pain, she has no fevers or chills, no shortness of breath. Onset: Unknown/Unsure (Sometime over the morning hours) Severity: Mild Associated Symptoms: Denies: Chest Pain, Cough, Fever/Chills, Malaise, Nausea/ Vomiting, Shortness of Breath - Related Data Allergies Allergy/AdvReac Type Severity Reaction Status Date / Time hydrocodone Allergy Cannot Verified 11/29/16 12:15 Remember strawberry [[place]] Allergy Hives Verified 11/29/16 12:15 codeine phosphate AdvReac Nausea and Verified 11/29/16 12:15 [From Tylenol-Codeine #3] Vomiting meperidine HCl [From Demerol] AdvReac Nausea and Verified 11/29/16 12:15 Vomiting nitrofurantoin AdvReac Nausea and Verified 11/29/16 12:15 Vomiting oxycodone HCl [From Roxicet] AdvReac Nausea and Verified 11/29/16 12:15 Vomiting sertraline AdvReac Diarrhea Verified 11/29/16 12:15 Home Meds: Home Meds Diphenoxylate HCl/Atropine [Diphenoxylate-Atrop 2.5-0.025] 1 - 2 tab PO QID PRN 07/09/13 [History] LORazepam [Ativan] 0.5 mg PO BID PRN 07/09/13 [History] Multivitamin [Multi-Vitamin Daily] 1 each PO DAILY 07/09/13 [History] Potassium Chloride [Klor-Con M20] 20 meq PO DAILY 11/13/14 [History] Warfarin Sliding Scale [Coumadin Sliding Scale] 1.25 mg PO MOFR 11/13/14 [ History] Calcium Carbonate/Vitamin D2 [Oyster Shell Calcium-Vit D Tab] 800 - 1,000 mg PO DAILY 11/15/14 [History] Warfarin [Coumadin] 2.5 mg PO SUTUWETHSA 11/15/14 [History] Pantoprazole Sodium [Protonix] 40 mg PO DAILY 01/14/15 [History] Losartan/Hydrochlorothiazide [Losartan-HCTZ 100-25 MG] 25 - 100 mg PO DAILY [History] Metoprolol Succinate 50 mg PO BID 11/09/16 [History] Triamcinolone Acetonide 1 film TOP TID 11/09/16 [History] Vitamin B Complex 0.5 tab PO DAILY 11/09/16 [History] Magnesium Oxide 400 mg PO DAILY #100 tablet 11/26/16 [Rx] hydrALAZINE [Apresoline] 10 mg PO Q6H #120 tablet 11/26/16 [Rx] traMADol [Ultram] 50 mg PO Q4H PRN #30 tablet 11/26/16 [Rx] Past Medical History HEENT History: Reports: Cataract, Hard of Hearing, Impaired Vision Cardiovascular History: Reports: CAD, High Cholesterol, Hypertension, Pacemaker , SOB on Exertion, Other (See Below) Other Cardiovascular History: mitral and tricuspid valve disease Respiratory History: Reports: SOB Other Respiratory History: na Gastrointestinal History: Reports: Cholelithiasis, Chronic Diarrhea, GERD, Hiatal Hernia, Irritable Bowel Syndrome, Other (See Below) Other Gastrointestinal History: esophageal stricture Genitourinary History: Reports: None 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: , Prolapsed Uterus Musculoskeletal History: Reports: Osteoarthritis, Osteoporosis Neurological History: Reports: None Psychiatric History: Reports: Anxiety Endocrine/Metabolic History: Reports: Osteoporosis, Other (See Below) Other Endocrine/Metabolic History: thyroid disease, mulyinodular goiter Hematologic History: Reports: Anesthesia Reaction, Anticoagulation Therapy Oncologic (Cancer) History: Reports: Breast Dermatologic History: Reports: None - Infectious Disease History Infectious Disease History: Reports: Chicken Pox - Past Surgical History Head Surgeries/Procedures: Reports: None HEENT Surgical History: Reports: Tonsillectomy Cardiovascular Surgical History: Reports: Pacer Respiratory Surgical History: Reports: None GI Surgical History: Reports: Cholecystectomy, Colonoscopy, EGD, Polypectomy Female Surgical History: Reports: Hysterectomy Endocrine Surgical History: Reports: Thyroid Biopsy Neurological Surgical History: Reports: None Musculoskeletal Surgical History: Reports: None Oncologic Surgical History: Reports: Mastectomy Dermatological Surgical History: Reports: None Social & Family History - Family History Family Medical History: Noncontributory - Tobacco Use Smoking Status *Q: Never Smoker Second Hand Smoke Exposure: No - Caffeine Use Caffeine Use: Reports: Coffee - Alcohol Use Days Per Week of Alcohol Use: 0 - Recreational Drug Use Recreational Drug Use: No - Living Situation & Occupation Living situation: Reports: , Alone Occupation: Retired ED ROS GENERAL - Review of Systems Review Of Systems: See Below Constitutional: Denies: Fever, Chills, Malaise HEENT: Reports: No Symptoms Respiratory: Denies: Shortness of Breath, Cough Cardiovascular: Denies: Chest Pain GI/Abdominal: Denies: Abdominal Pain, Nausea, Vomiting Neurological: Reports: No Symptoms ED EXAM, GENERAL - Physical Exam Exam: See Below Exam Limited By: No Limitations General Appearance: Alert, No Apparent Distress Respiratory/Chest: No Respiratory Distress, Lungs Clear Cardiovascular: Regular Rate, Rhythm Neurological: Alert, Oriented Skin Exam: Warm, Dry, Other (Exam of the surgical area on the right anterior chest shows a well-healing incision, no significant dehiscence or opening, no redness or inflammation. There is no significant subcutaneous fluctuance or pressure. Just above the incision there is a 2 cm raised intact blister with clear fluid, it is nontender) Course - Vital Signs Last Recorded V/S: Last Vital Signs Temp 98.2 F 12/13/16 16:07 Pulse 81 12/13/16 16:07 Resp 18 12/13/16 16:07 BP 212/72 H 12/13/16 16:07 Pulse Ox 96 12/13/16 16:07 - Re-Assessments/Exams Free Text/Narrative Re-Assessment/Exam: 12/13/16 16:30 It's very likely this patient had some serous drainage from her surgery. I would continue to wear some pads were gauze over the incision in case there is more drainage and she can return if she becomes feverish or the drainage becomes more purulent or orders. The small blister should be left intact, she has a postoperative recheck on Wednesday and if stable can wait till that time for rechecking. She can return sooner if worsening or concerns. Departure - Departure Time of Disposition: 16:48 Disposition: Home, Self-Care 01 Condition: Good Clinical Impression: Postoperative seroma of subcutaneous tissue Qualifiers: Procedure type: non-dermatologic Qualified Code(s): L76.34 - Postprocedural seroma of skin and subcutaneous tissue following other procedure - Discharge Information Instructions: Seroma Referrals: David Torres MD [Primary Care Provider] - Forms: ED Department Discharge Care Plan Goals: Continue to cover area with gauze or pads to collect any future drainage. Recheck on Wednesday as scheduled or return sooner if increasing pain, swelling , fevers, or drainage becomes more purulent or odorous.
== END 2016-12-13 16:48 | disposition home or self-care (01) ==
LOC: JP.ED 15:40
DX: L76.34 Postprocedural seroma of skin and subcutaneous tissue following other procedure (principal); I25.10 Atherosclerotic heart disease of native coronary artery without angina pectoris; I10 Essential (primary) hypertension; E78.00 Pure hypercholesterolemia, unspecified; K21.9 Gastro-esophageal reflux disease without esophagitis; M19.90 Unspecified osteoarthritis, unspecified site; M81.0 Age-related osteoporosis without current pathological fracture; F41.9 Anxiety disorder, unspecified; Z90.11 Acquired absence of right breast and nipple; Z88.5 Allergy status to narcotic agent; Z88.8 Allergy status to other drugs, medicaments and biological substances; Z91.018 Allergy to other foods; Z79.01 Long term (current) use of anticoagulants; Z79.899 Other long term (current) drug therapy; Z85.3 Personal history of malignant neoplasm of breast; Z90.710 Acquired absence of both cervix and uterus; Z95.0 Presence of cardiac pacemaker; Z90.49 Acquired absence of other specified parts of digestive tract; Z98.890 Other specified postprocedural states
CPT/HCPCS: 99283

== ENCOUNTER 2017-02-09 07:02 | Emergency (ER) | payer MEDICARE, BC ==
[2017-02-09 07:19] VITALS: BP 200/70
--- NOTE | 2017-02-09 07:45 | EDM.PDOC ---
ED HPI GENERAL MEDICAL PROBLEM - General Chief Complaint: Skin Complaint Stated Complaint: DRAIN TUBE PULLED OUT Time Seen by Provider: 02/09/17 07:42 Source of Information: Reports: Patient, Family History Limitations: Reports: No Limitations - History of Present Illness INITIAL COMMENTS - FREE TEXT/NARRATIVE: pt had a drain in the rt breast after a mastectomy. The drain c jaimie out. Dr Torres was contacted and he was going to pull the drain tomorrow. - Related Data Allergies Allergy/AdvReac Type Severity Reaction Status Date / Time hydrocodone Allergy Cannot Verified 02/09/17 07:19 Remember strawberry [[place]] Allergy Hives Verified 02/09/17 07:19 codeine phosphate AdvReac Nausea and Verified 02/09/17 07:19 [From Tylenol-Codeine #3] Vomiting meperidine HCl [From Demerol] AdvReac Nausea and Verified 02/09/17 07:19 Vomiting nitrofurantoin AdvReac Nausea and Verified 02/09/17 07:19 Vomiting oxycodone HCl [From Roxicet] AdvReac Nausea and Verified 02/09/17 07:19 Vomiting sertraline AdvReac Diarrhea Verified 02/09/17 07:19 Home Meds: Home Meds Diphenoxylate HCl/Atropine [Diphenoxylate-Atrop 2.5-0.025] 1 - 2 tab PO QID PRN 07/09/13 [History] LORazepam [Ativan] 0.5 mg PO BID PRN 07/09/13 [History] Multivitamin [Multi-Vitamin Daily] 1 each PO DAILY 07/09/13 [History] Potassium Chloride [Klor-Con M20] 20 meq PO DAILY 11/13/14 [History] Warfarin Sliding Scale [Coumadin Sliding Scale] 1.25 mg PO MOFR 11/13/14 [ History] Calcium Carbonate/Vitamin D2 [Oyster Shell Calcium-Vit D Tab] 800 - 1,000 mg PO DAILY 11/15/14 [History] Warfarin [Coumadin] 2.5 mg PO SUTUWETHSA 11/15/14 [History] Pantoprazole Sodium [Protonix] 40 mg PO DAILY 01/14/15 [History] Losartan/Hydrochlorothiazide [Losartan-HCTZ 100-25 MG] 25 - 100 mg PO DAILY [History] Metoprolol Succinate 50 mg PO BID 11/09/16 [History] Triamcinolone Acetonide 1 film TOP TID 11/09/16 [History] Vitamin B Complex 0.5 tab PO DAILY 11/09/16 [History] Magnesium Oxide 400 mg PO DAILY #100 tablet 11/26/16 [Rx] hydrALAZINE [Apresoline] 10 mg PO Q6H #120 tablet 11/26/16 [Rx] traMADol [Ultram] 50 mg PO Q4H PRN #30 tablet 11/26/16 [Rx] Past Medical History HEENT History: Reports: Cataract, Hard of Hearing, Impaired Vision Cardiovascular History: Reports: CAD, High Cholesterol, Hypertension, Pacemaker , SOB on Exertion, Other (See Below) Other Cardiovascular History: mitral and tricuspid valve disease Respiratory History: Reports: SOB Other Respiratory History: na Gastrointestinal History: Reports: Cholelithiasis, Chronic Diarrhea, GERD, Hiatal Hernia, Irritable Bowel Syndrome, Other (See Below) Other Gastrointestinal History: esophageal stricture Genitourinary History: Reports: None UNIT CLERK History: Reports: , Prolapsed Uterus Musculoskeletal History: Reports: Osteoarthritis, Osteoporosis Neurological History: Reports: None Psychiatric History: Reports: Anxiety Endocrine/Metabolic History: Reports: Osteoporosis, Other (See Below) Other Endocrine/Metabolic History: thyroid disease, mulyinodular goiter Hematologic History: Reports: Anesthesia Reaction, Anticoagulation Therapy Oncologic (Cancer) History: Reports: Breast Dermatologic History: Reports: None - Infectious Disease History Infectious Disease History: Reports: Chicken Pox - Past Surgical History Head Surgeries/Procedures: Reports: None HEENT Surgical History: Reports: Tonsillectomy Cardiovascular Surgical History: Reports: Pacer Respiratory Surgical History: Reports: None GI Surgical History: Reports: Cholecystectomy, Colonoscopy, EGD, Polypectomy Female Surgical History: Reports: Hysterectomy Endocrine Surgical History: Reports: Thyroid Biopsy Neurological Surgical History: Reports: None Musculoskeletal Surgical History: Reports: None Oncologic Surgical History: Reports: Mastectomy Dermatological Surgical History: Reports: None Social & Family History - Family History Family Medical History: Noncontributory - Tobacco Use Smoking Status *Q: Never Smoker Second Hand Smoke Exposure: No - Caffeine Use Caffeine Use: Reports: Coffee - Alcohol Use Days Per Week of Alcohol Use: 0 - Recreational Drug Use Recreational Drug Use: No - Living Situation & Occupation Living situation: Reports: , Alone Occupation: Retired ED ROS GENERAL - Review of Systems Review Of Systems: See Below Constitutional: Reports: No Symptoms HEENT: Reports: No Symptoms Respiratory: Reports: No Symptoms Cardiovascular: Reports: No Symptoms Endocrine: Reports: No Symptoms GI/Abdominal: Reports: No Symptoms : Reports: No Symptoms Musculoskeletal: Reports: No Symptoms, Other ( rt breast has not been swollen. She has been getting about 1.5 cc out of the drain. ) Skin: Reports: No Symptoms ED EXAM, SKIN/RASH Exam: See Below Text/Narrative:: Pt had a drain that came out of her rt breast. She has been draining about 1.5 cc per 12 hour period. Exam Limited By: No Limitations General Appearance: Alert, Anxious Ears: Normal TMs Nose: Normal Inspection Throat/Mouth: Normal Inspection Head: Atraumatic Neck: Normal Inspection Respiratory/Chest: Other ( breast area on the rt is not swollen and feels quite soft/r) GI/Abdominal: Other ( abdoman is not distended The wound looks good. Dr Torres advised that the drain be left out. ) (Female) Exam: Deferred Course - Vital Signs Last Recorded V/S: Last Vital Signs Temp 36.2 C 02/09/17 07:16 Pulse 74 02/09/17 07:16 Resp 16 02/09/17 07:16 BP 200/70 H 02/09/17 07:16 Pulse Ox 98 02/09/17 07:16 Departure - Departure Time of Disposition: 07:42 Disposition: Home, Self-Care 01 Condition: Fair Clinical Impression: History of mastectomy, Visit for wound check - Discharge Information Instructions: Incision and Drainage, Care After Referrals: Shahram Hirsch MD [Primary Care Provider] - Forms: ED Department Discharge Care Plan Goals: keep appt with Dr Brian nathan , leave Drain out at this point.
== END 2017-02-09 07:52 | disposition home or self-care (01) ==
LOC: JP.ED 07:02
DX: Z48.01 Encounter for change or removal of surgical wound dressing (principal); I10 Essential (primary) hypertension; I25.10 Atherosclerotic heart disease of native coronary artery without angina pectoris; E78.00 Pure hypercholesterolemia, unspecified; K21.9 Gastro-esophageal reflux disease without esophagitis; Z90.11 Acquired absence of right breast and nipple; Z85.3 Personal history of malignant neoplasm of breast; Z79.01 Long term (current) use of anticoagulants; Z90.710 Acquired absence of both cervix and uterus; Z98.890 Other specified postprocedural states; Z95.0 Presence of cardiac pacemaker; Z79.899 Other long term (current) drug therapy; Z88.6 Allergy status to analgesic agent; Z88.5 Allergy status to narcotic agent; Z88.8 Allergy status to other drugs, medicaments and biological substances; Z91.018 Allergy to other foods
CPT/HCPCS: 99282; 99283

== ENCOUNTER 2017-08-23 01:46 | Emergency (ER) | payer MEDICARE, BC ==
[2017-08-23 02:13] VITALS: BP 216/77
--- NOTE | 2017-08-23 02:47 | EDM.PDOC ---
ED HPI GENERAL MEDICAL PROBLEM - General Chief Complaint: Skin Complaint Stated Complaint: ITCHING Time Seen by Provider: 08/23/17 02:20 Source of Information: Reports: Patient History Limitations: Reports: No Limitations - History of Present Illness INITIAL COMMENTS - FREE TEXT/NARRATIVE: 82-year-old female whose been struggling with a recurring vasculitis-like rash that started on her legs, and has been recurring and migrating for the last 3 months. She's tried topical steroids which hasn't helped. She has not tried any oral medications. She develops red edematous areas of the extremities and sometimes the trunk which feels thickened in the skin, itchy, and appears swollen. Tonight she was having significant symptoms in the right arm on the extensor surface of the forearm and around the elbow and became scared so came in. She has no shortness of breath or chest pain. No fevers or chills. 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: Other (see below) (Topical steroids only) - Related Data Allergies Allergy/AdvReac Type Severity Reaction Status Date / Time hydrocodone Allergy Cannot Verified 08/23/17 02:09 Remember strawberry [[place]] Allergy Hives Verified 08/23/17 02:09 codeine phosphate AdvReac Nausea and Verified 08/23/17 02:09 [From Tylenol-Codeine #3] Vomiting meperidine HCl [From Demerol] AdvReac Nausea and Verified 08/23/17 02:09 Vomiting nitrofurantoin AdvReac Nausea and Verified 08/23/17 02:09 Vomiting oxycodone HCl [From Roxicet] AdvReac Nausea and Verified 08/23/17 02:09 Vomiting sertraline AdvReac Diarrhea Verified 08/23/17 02:09 Home Meds: Home Meds Diphenoxylate HCl/Atropine [Diphenoxylate-Atrop 2.5-0.025] 1 - 2 tab PO QID PRN 07/09/13 [History] LORazepam [Ativan] 0.5 mg PO BID PRN 07/09/13 [History] Multivitamin [Multi-Vitamin Daily] 1 each PO DAILY 07/09/13 [History] Potassium Chloride [Klor-Con M20] 20 meq PO DAILY 11/13/14 [History] Warfarin Sliding Scale [Coumadin Sliding Scale] 1.25 mg PO MOFR 11/13/14 [ History] Calcium Carbonate/Vitamin D2 [Oyster Shell Calcium-Vit D Tab] 800 - 1,000 mg PO DAILY 11/15/14 [History] Warfarin [Coumadin] 2.5 mg PO SUTUWETHSA 11/15/14 [History] Pantoprazole Sodium [Protonix] 40 mg PO DAILY 01/14/15 [History] Losartan/Hydrochlorothiazide [Losartan-HCTZ 100-25 MG] 1 tab PO DAILY 11/09/16 [ History] Triamcinolone Acetonide 1 film TOP TID 11/09/16 [History] Vitamin B Complex 0.5 tab PO DAILY 11/09/16 [History] Metoprolol Tartrate 1 tab PO BID 08/23/17 [History] Past Medical History HEENT History: Reports: Cataract, Hard of Hearing, Impaired Vision Cardiovascular History: Reports: CAD, High Cholesterol, Hypertension, Pacemaker , SOB on Exertion, Other (See Below) Other Cardiovascular History: mitral and tricuspid valve disease Respiratory History: Reports: SOB Other Respiratory History: na Gastrointestinal History: Reports: Cholelithiasis, Chronic Diarrhea, GERD, Hiatal Hernia, Irritable Bowel Syndrome, Other (See Below) Other Gastrointestinal History: esophageal stricture Genitourinary History: Reports: None 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: , Prolapsed Uterus Musculoskeletal History: Reports: Osteoarthritis, Osteoporosis Neurological History: Reports: None Psychiatric History: Reports: Anxiety Endocrine/Metabolic History: Reports: Osteoporosis, Other (See Below) Other Endocrine/Metabolic History: thyroid disease, mulyinodular goiter Hematologic History: Reports: Anesthesia Reaction, Anticoagulation Therapy Oncologic (Cancer) History: Reports: Breast Dermatologic History: Reports: None - Infectious Disease History Infectious Disease History: Reports: Chicken Pox - Past Surgical History Head Surgeries/Procedures: Reports: None HEENT Surgical History: Reports: Tonsillectomy Cardiovascular Surgical History: Reports: Pacer Respiratory Surgical History: Reports: None GI Surgical History: Reports: Cholecystectomy, Colonoscopy, EGD, Polypectomy Female Surgical History: Reports: Hysterectomy Endocrine Surgical History: Reports: Thyroid Biopsy Neurological Surgical History: Reports: None Musculoskeletal Surgical History: Reports: None Oncologic Surgical History: Reports: Mastectomy Dermatological Surgical History: Reports: None Social & Family History - Family History Family Medical History: Noncontributory - Tobacco Use Smoking Status *Q: Never Smoker Second Hand Smoke Exposure: No - Caffeine Use Caffeine Use: Reports: Coffee - Alcohol Use Days Per Week of Alcohol Use: 0 - Recreational Drug Use Recreational Drug Use: No - Living Situation & Occupation Living situation: Reports: , Alone Occupation: Retired ED ROS GENERAL - Review of Systems Review Of Systems: See Below Constitutional: Denies: Fever, Chills Respiratory: Denies: Shortness of Breath Cardiovascular: Denies: Chest Pain GI/Abdominal: Denies: Abdominal Pain, Nausea, Vomiting Psychiatric: Reports: Anxiety Free Text/Narrative/Comment: Anxiety about the rash causes her blood pressure to increase ED EXAM, SKIN/RASH Exam: See Below Exam Limited By: No Limitations General Appearance: Alert, No Apparent Distress Eye Exam: Bilateral Eye: EOMI Head: Atraumatic Respiratory/Chest: No Respiratory Distress, Lungs Clear Cardiovascular: Regular Rate, Rhythm Neurological: Alert, Oriented Psychiatric: Anxious Skin: Other (Patient has erythematous, thickened almost bruised areas of inflammatory change in the skin especially on the right arm and around the right elbow. It's slightly warm but nontender to palpation) Course - Vital Signs Last Recorded V/S: Last Vital Signs Temp 98 F 08/23/17 02:11 Pulse 79 08/23/17 02:11 Resp 18 08/23/17 02:11 BP 216/77 H 08/23/17 02:11 Pulse Ox 99 08/23/17 02:11 - Orders/Labs/Meds Meds: Medications Discontinued Medications Generic Name Dose Route Start Last Admin Trade Name Matteo PRN Reason Stop Dose Admin Diphenhydramine HCl 25 mg 08/23/17 02:53 08/23/17 02:56 Benadryl PO 08/23/17 02:54 25 mg ONETIME ONE Administration - Re-Assessments/Exams Free Text/Narrative Re-Assessment/Exam: 08/23/17 02:45 This patient appears to be experiencing some type of migratory vasculitic change of the skin. Going to put her on 40 mg of prednisone a day for the next 3 -5 days and also advised her to take twice daily Zyrtec [id number]. She should recheck later in the week with her primary provider to discuss further laboratory workup and possibly a dermatology referral or allergy testing. 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 Take 4 pills of prednisone with your first meal each day for the next [address] Hirsch in 3-4 days to discuss treatment response and any further testing or treatment which may be necessary or recommended.
[2017-08-23] MEDS ORDERED: diphenhydrAMINE 25 MG Cap PO ONE (02:53)
== END 2017-08-23 03:06 | disposition home or self-care (01) ==
LOC: JP.ED 01:46
DX: L95.9 Vasculitis limited to the skin, unspecified (principal); I10 Essential (primary) hypertension; Z88.8 Allergy status to other drugs, medicaments and biological substances; Z91.018 Allergy to other foods; Z79.899 Other long term (current) drug therapy
CPT/HCPCS: 99282; A9270

== ENCOUNTER 2018-08-25 23:50 | Emergency (ER) | payer MEDICARE, BC ==
[2018-08-26 00:10] VITALS: BP 225/91
[2018-08-26] MEDS ORDERED: Ketorolac 30 MG/ML SDV IM ONE (00:37)
--- NOTE | 2018-08-26 00:39 | EDM.PDOC ---
ED HPI GENERAL MEDICAL PROBLEM - General Chief Complaint: Abdominal Pain Stated Complaint: ABD PAIN Time Seen by Provider: 08/26/18 00:15 Source of Information: Reports: Patient, Family History Limitations: Reports: No Limitations - History of Present Illness INITIAL COMMENTS - FREE TEXT/NARRATIVE: 83-year-old female arrives with left anterior chest wall and upper left abdominal pain for 1 day intermittently. Tonight she laid down and it was hurting so bad she couldn't sleep so she called her son to bring her in to be checked out. No fevers or chills, no cough, no recent falls or increase activity. Onset: Unknown/Unsure Duration: Day(s): (1) Quality: Reports: Sharp, Stabbing Worsens with: Reports: Movement Associated Symptoms: Denies: Cough, Shortness of Breath Upper Abdomen Pain Score (Numeric/FACES): 8 - Related Data Allergies Allergy/AdvReac Type Severity Reaction Status Date / Time hydrocodone Allergy Cannot Verified 08/26/18 00:21 Remember sulfamethoxazole Allergy Cannot Verified 08/26/18 00:21 [From Bactrim] Remember trimethoprim [From Bactrim] Allergy Cannot Verified 08/26/18 00:21 Remember codeine phosphate AdvReac Nausea and Verified 08/26/18 00:21 [From Tylenol-Codeine #3] Vomiting meperidine HCl [From Demerol] AdvReac Nausea and Verified 08/26/18 00:21 Vomiting nitrofurantoin AdvReac Nausea and Verified 08/26/18 00:21 Vomiting oxycodone HCl [From Roxicet] AdvReac Nausea and Verified 08/26/18 00:21 Vomiting sertraline AdvReac Diarrhea Verified 08/26/18 00:21 Home Meds: Home Meds Diphenoxylate HCl/Atropine [Diphenoxylate-Atrop 2.5-0.025] 1 - 2 tab PO QID PRN 07/09/13 [History] LORazepam [Ativan] 0.5 mg PO BID PRN 07/09/13 [History] Multivitamin [Multi-Vitamin Daily] 1 each PO DAILY 07/09/13 [History] Potassium Chloride [Klor-Con M20] 20 meq PO DAILY 11/13/14 [History] Warfarin Sliding Scale [Coumadin Sliding Scale] 1.25 mg PO ASDIRECTED 11/13/14 [ History] Calcium Carbonate/Vitamin D2 [Oyster Shell Calcium-Vit D Tab] 800 - 1,000 mg PO DAILY 11/15/14 [History] Warfarin [Coumadin] 2.5 mg PO ASDIRECTED 11/15/14 [History] Pantoprazole Sodium [Protonix] 40 mg PO DAILY 01/14/15 [History] Losartan/Hydrochlorothiazide [Losartan-HCTZ 100-25 MG] 1 tab PO DAILY 11/09/16 [ History] Triamcinolone Acetonide 1 film TOP TID 11/09/16 [History] Vitamin B Complex 0.5 tab PO DAILY 11/09/16 [History] Metoprolol Tartrate 1 tab PO BID 08/23/17 [History] Past Medical History HEENT History: Reports: Cataract, Hard of Hearing, Impaired Vision Cardiovascular History: Reports: CAD, High Cholesterol, Hypertension, Pacemaker , SOB on Exertion, Other (See Below) Other Cardiovascular History: mitral and tricuspid valve disease Respiratory History: Reports: SOB Other Respiratory History: na Gastrointestinal History: Reports: Cholelithiasis, Chronic Diarrhea, GERD, Hiatal Hernia, Irritable Bowel Syndrome, Other (See Below) Other Gastrointestinal History: esophageal stricture Genitourinary History: Reports: None 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: , Prolapsed Uterus Musculoskeletal History: Reports: Osteoarthritis, Osteoporosis Neurological History: Reports: None Psychiatric History: Reports: Anxiety Endocrine/Metabolic History: Reports: Osteoporosis, Other (See Below) Other Endocrine/Metabolic History: thyroid disease, mulyinodular goiter Hematologic History: Reports: Anesthesia Reaction, Anticoagulation Therapy Oncologic (Cancer) History: Reports: Breast Dermatologic History: Reports: None - Infectious Disease History Infectious Disease History: Reports: C-Difficile, Chicken Pox - Past Surgical History Head Surgeries/Procedures: Reports: None HEENT Surgical History: Reports: Tonsillectomy Cardiovascular Surgical History: Reports: Pacer Respiratory Surgical History: Reports: None GI Surgical History: Reports: Cholecystectomy, Colonoscopy, EGD, Polypectomy Female Surgical History: Reports: Hysterectomy, Mastectomy Endocrine Surgical History: Reports: Thyroid Biopsy Neurological Surgical History: Reports: None Musculoskeletal Surgical History: Reports: None Oncologic Surgical History: Reports: Mastectomy, Other (See Below) Other Oncologic Surgeries/Procedures: Right Mastectomy Dermatological Surgical History: Reports: None Social & Family History - Family History Family Medical History: Noncontributory - Tobacco Use Smoking Status *Q: Never Smoker Second Hand Smoke Exposure: No - Caffeine Use Caffeine Use: Reports: Coffee - Recreational Drug Use Recreational Drug Use: No - Living Situation & Occupation Living situation: Reports: , Alone Occupation: Retired ED ROS GENERAL - Review of Systems Review Of Systems: See Below Constitutional: Denies: Fever, Chills HEENT: Reports: No Symptoms Respiratory: Denies: Shortness of Breath, Hemoptysis Cardiovascular: Reports: Chest Pain GI/Abdominal: Reports: Abdominal Pain. Denies: Constipation, Diarrhea, Nausea, Vomiting : Reports: No Symptoms Skin: Denies: Rash Neurological: Denies: Headache, Paresthesia Psychiatric: Reports: No Symptoms ED EXAM, GENERAL - Physical Exam Exam: See Below Exam Limited By: No Limitations General Appearance: Alert, Moderate Distress Eye Exam: Bilateral Eye: Normal Inspection Head: Atraumatic Neck: Normal Inspection Respiratory/Chest: No Respiratory Distress, Lungs Clear Cardiovascular: Regular Rate, Rhythm GI/Abdominal: Soft, Tender (I can reproduce tenderness palpating in the high left upper quadrant under the edge of the rib cage onto the anterior aspect of the lower ribs and onto the costochondral area. There are no rashes over the painful area) Course - Vital Signs Last Recorded V/S: Last Vital Signs Temp 97.3 F 08/26/18 00:07 Pulse 88 08/26/18 00:07 Resp 14 08/26/18 00:07 BP 225/91 H 08/26/18 00:07 Pulse Ox 98 08/26/18 00:07 - Orders/Labs/Meds Labs: Laboratory Tests 08/26/18 08/26/18 Range/Units 00:38 00:38 WBC 8.4 (4.5-11.0) K/uL RBC 4.36 (3.30-5.50) M/uL Hgb 12.9 (12.0-15.0) g/dL Hct 38.7 (36.0-48.0) % MCV 89 (80-98) fL MCH 30 (27-31) pg MCHC 33 (32-36) % Plt Count 303 (150-400) K/uL Neut % (Auto) 57 (36-66) % Lymph % (Auto) 25 (24-44) % [place] % (Auto) 12 H (2-6) % Eos % (Auto) 6 H (2-4) % Baso % (Auto) 1 (0-1) % Sodium 139 L (140-148) mmol/L Potassium 4.3 (3.6-5.2) mmol/L Chloride 105 (100-108) mmol/L Carbon Dioxide 25 (21-32) mmol/L Anion Gap 13.3 (5.0-14.0) mmol/L BUN 31 H (7-18) mg/dL Creatinine 1.1 H (0.6-1.0) mg/dL Est Cr Clr Drug Dosing 28.73 mL/min Estimated GFR (MDRD) 47 L (>60) Glucose 104 (74-106) mg/dL Calcium 10.1 (8.5-10.1) mg/dL Total Bilirubin 0.2 D (0.2-1.0) mg/dL AST 19 (15-37) U/L ALT 23 (12-78) U/L Alkaline Phosphatase 68 (46-116) U/L Troponin I < 0.017 (0.000-0.056) ng/mL Total Protein 6.8 (6.4-8.2) g/dL Albumin 3.2 L (3.4-5.0) g/dL Globulin 3.6 H (2.3-3.5) g/dL Albumin/Globulin Ratio 0.9 L (1.2-2.2) Lipase 206 (73-393) U/L Meds: Medications Discontinued Medications Generic Name Dose Route Start Last Admin Trade Name Freq PRN Reason Stop Dose Admin Ketorolac Tromethamine 15 mg 08/26/18 00:37 08/26/18 00:53 Toradol IM 08/26/18 00:38 15 mg ONETIME ONE Administration - Re-Assessments/Exams Free Text/Narrative Re-Assessment/Exam: 08/26/18 01:48 Patient was given 15 mg of IM Toradol, followed by a two-view chest x-ray, CBC, CMP troponin. Her chest x-ray was normal other than her pacemaker, and all her labs are normal. Her pain was basically gone on discharge. I think this is chest wall pain, possibly costochondritis and she can recheck in the next 48 hours if not improving. Departure - Departure Time of Disposition: 02:20 Disposition: Home, Self-Care 01 Condition: Good Clinical Impression: Anterior chest wall pain - Discharge Information Instructions: Chest Wall Pain, [id number] Referrals: Shahram Hirsch MD [Primary Care Provider] - Forms: ED Department Discharge Care Plan Goals: Take Tylenol on a regular basis over the next few days and continue activity as tolerated. Return if worsening such as shortness of breath or fever, or pain becomes more consistent or bothersome.
--- NOTE | 2018-08-26 01:16 | CRLCR ---
INDICATION: Dyspnea TECHNIQUE: Chest radiograph 2 views COMPARISON: None FINDINGS: Mediastinum: Small sliding type gastric hiatal hernia (type IV) is present. The heart silhouette is normal in size and morphology. There is a left cardiac pacer present with leads in the right atrium and right ventricle. Lung: Both lungs are unremarkable in appearance. No sign of pleural effusion seen. No pneumothorax is identified. Musculoskeletal: Mild levoscoliosis of the lower thoracic spine is noted. IMPRESSION: 1. No acute cardiopulmonary disease is seen. Dictated by Omi Day MD @ 08/26/2018 1:13:41 AM Dictated by: Omi Day MD @ 08/26/2018 01:13:51 (Electronically Signed)
== END 2018-08-26 02:21 | disposition home or self-care (01) ==
LOC: JP.ED 23:50
DX: R07.89 Other chest pain (principal); I10 Essential (primary) hypertension; E78.00 Pure hypercholesterolemia, unspecified; I25.10 Atherosclerotic heart disease of native coronary artery without angina pectoris; F41.9 Anxiety disorder, unspecified; K21.9 Gastro-esophageal reflux disease without esophagitis; Z79.899 Other long term (current) drug therapy; Z88.8 Allergy status to other drugs, medicaments and biological substances; Z88.6 Allergy status to analgesic agent
CPT/HCPCS: 36415; 71046; 80053; 83690; 84484; 85025; 96372; 99284; J1885

== ENCOUNTER 2019-09-03 21:41 | Emergency (ER) | payer MEDICARE, BC ==
[2019-09-03] MEDS ORDERED: Nitroglycerin 0.4 MG Tab.SL SL ONE (22:17)
--- NOTE | 2019-09-03 22:19 | EDM.PDOC ---
ED HPI GENERAL MEDICAL PROBLEM - General Chief Complaint: Cardiovascular Problem Stated Complaint: HIGH BLOOD PRESSURE Time Seen by Provider: 09/03/19 22:11 Source of Information: Reports: Patient, Old Records, RN Notes Reviewed History Limitations: Reports: No Limitations - History of Present Illness INITIAL COMMENTS - FREE TEXT/NARRATIVE: 84-year-old female presents emergency department a complaint of elevated blood pressure, she has a longstanding history of essential hypertension that has been poorly controlled she does have follow-up appointment with her primary care next week on Wednesday to revisit her blood pressure. She has been checking at home ranges anywhere from 1 40-2 40 systolic. She is asymptomatic at this time other than a slight headache she also admits that she does have intermittent nosebleeds over the last week - Related Data Allergies Allergy/AdvReac Type Severity Reaction Status Date / Time hydrocodone Allergy Cannot Verified 09/03/19 22:08 Remember sulfamethoxazole Allergy Cannot Verified 09/03/19 22:08 [From Bactrim] Remember trimethoprim [From Bactrim] Allergy Cannot Verified 09/03/19 22:08 Remember codeine phosphate AdvReac Nausea and Verified 09/03/19 22:08 [From Tylenol-Codeine #3] Vomiting meperidine HCl [From Demerol] AdvReac Nausea and Verified 09/03/19 22:08 Vomiting nitrofurantoin AdvReac Nausea and Verified 09/03/19 22:08 Vomiting oxycodone HCl [From Roxicet] AdvReac Nausea and Verified 09/03/19 22:08 Vomiting sertraline AdvReac Diarrhea Verified 09/03/19 22:08 Home Meds: Home Meds LORazepam [Ativan] 0.5 mg PO BID PRN 07/09/13 [History] Multivitamin [Multi-Vitamin Daily] 1 each PO DAILY 07/09/13 [History] Potassium Chloride [Klor-Con M20] 20 meq PO DAILY 11/13/14 [History] Warfarin Sliding Scale [Coumadin Sliding Scale] 1.25 mg PO ASDIRECTED 11/13/14 [ History] Warfarin [Coumadin] 2.5 mg PO ASDIRECTED 11/15/14 [History] Pantoprazole Sodium [Protonix] 40 mg PO DAILY 01/14/15 [History] Losartan/Hydrochlorothiazide [Losartan-HCTZ 100-25 MG] 1 tab PO DAILY 11/09/16 [ History] Triamcinolone Acetonide 1 film TOP TID 11/09/16 [History] Vitamin B Complex 0.5 tab PO DAILY 11/09/16 [History] Metoprolol Tartrate 1 tab PO BID 08/23/17 [History] Past Medical History HEENT History: Reports: Cataract, Hard of Hearing, Impaired Vision Cardiovascular History: Reports: Afib, CAD, High Cholesterol, Hypertension, Pacemaker, SOB on Exertion, Other (See Below) Other Cardiovascular History: mitral and tricuspid valve disease Respiratory History: Reports: SOB Other Respiratory History: na Gastrointestinal History: Reports: Cholelithiasis, Chronic Diarrhea, GERD, Hiatal Hernia, Irritable Bowel Syndrome, Other (See Below) Other Gastrointestinal History: esophageal stricture 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: , Prolapsed Uterus Musculoskeletal History: Reports: Osteoarthritis, Osteoporosis Psychiatric History: Reports: Anxiety Endocrine/Metabolic History: Reports: Osteoporosis, Other (See Below) Other Endocrine/Metabolic History: thyroid disease, mulyinodular goiter Hematologic History: Reports: Anesthesia Reaction, Anticoagulation Therapy Oncologic (Cancer) History: Reports: Breast Dermatologic History: Reports: None - Infectious Disease History Infectious Disease History: Reports: C-Difficile, Chicken Pox - Past Surgical History Head Surgeries/Procedures: Reports: None HEENT Surgical History: Reports: Tonsillectomy Cardiovascular Surgical History: Reports: Pacer Respiratory Surgical History: Reports: None GI Surgical History: Reports: Cholecystectomy, Colonoscopy, EGD, Polypectomy Female Surgical History: Reports: Hysterectomy, Mastectomy Endocrine Surgical History: Reports: Thyroid Biopsy Neurological Surgical History: Reports: None Musculoskeletal Surgical History: Reports: None Oncologic Surgical History: Reports: Mastectomy, Other (See Below) Other Oncologic Surgeries/Procedures: Right Mastectomy Dermatological Surgical History: Reports: None Social & Family History - Family History Family Medical History: Noncontributory - Tobacco Use Smoking Status *Q: Never Smoker - Caffeine Use Caffeine Use: Reports: Coffee - Living Situation & Occupation Living situation: Reports: , Alone Occupation: Retired ED ROS GENERAL - Review of Systems Review Of Systems: See Below Constitutional: Reports: No Symptoms HEENT: Reports: Nosebleed (Intermittent) Respiratory: Reports: No Symptoms Cardiovascular: Reports: No Symptoms GI/Abdominal: Reports: No Symptoms Neurological: Reports: Headache ED EXAM, GENERAL - Physical Exam Exam: See Below Exam Limited By: No Limitations General Appearance: Alert, WD/WN, No Apparent Distress Respiratory/Chest: No Respiratory Distress, Lungs Clear, Normal Breath Sounds, No Accessory Muscle Use, Chest Non-Tender Cardiovascular: Regular Rate, Rhythm, No Murmur GI/Abdominal: Soft, Non-Tender Extremities: Normal Inspection, No Pedal Edema Course - Vital Signs Last Recorded V/S: Last Vital Signs Temp 97.8 F 09/03/19 22:07 Pulse 84 09/03/19 22:57 Resp 16 09/03/19 22:07 BP 222/87 H 09/03/19 22:57 Pulse Ox 97 09/03/19 22:07 - Orders/Labs/Meds Labs: Laboratory Tests 09/03/19 09/03/19 Range/Units 22:17 22:26 WBC 7.9 (4.5-11.0) K/uL RBC 4.35 (3.30-5.50) M/uL Hgb 13.0 (12.0-15.0) g/dL Hct 38.9 (36.0-48.0) % MCV 89 (80-98) fL MCH 30 (27-31) pg MCHC 33 (32-36) % Plt Count 318 (150-400) K/uL Neut % (Auto) 54 (36-66) % Lymph % (Auto) 29 (24-44) % [place] % (Auto) 12 H (2-6) % Eos % (Auto) 5 H (2-4) % Baso % (Auto) 1 (0-1) % Sodium 140 (140-148) mmol/L Potassium 4.3 (3.6-5.2) mmol/L Chloride 106 (100-108) mmol/L Carbon Dioxide 26 (21-32) mmol/L Anion Gap 7.7 (5.0-14.0) mmol/L BUN 34 H (7-18) mg/dL Creatinine 1.4 H (0.6-1.0) mg/dL Est Cr Clr Drug Dosing 25.37 mL/min Estimated GFR (MDRD) 36 L (>60) Glucose 121 H (74-106) mg/dL Calcium 9.3 (8.5-10.1) mg/dL Meds: Medications Discontinued Medications Generic Name Dose Route Start Last Admin Trade Name Freq PRN Reason Stop Dose Admin Nitroglycerin 0.4 mg 09/03/19 22:17 09/03/19 22:51 Nitrostat SL 09/03/19 22:18 0.4 mg ONETIME ONE Administration Departure - Departure Time of Disposition: 23:02 Disposition: Home, Self-Care 01 Condition: Fair Clinical Impression: Hypertensive urgency Instructions: Hypertension, Adult, [id number] Referrals: Shahram Hirsch MD [Primary Care Provider] - Forms: ED Department Discharge Additional Instructions: Continue with your regular medications keep your follow-up appointment with your primary care provider on Wednesday of next week call return to the emergency department with worsening of symptoms Sepsis Event Note - Evaluation Sepsis Screening Result: No Definite Risk - Focused Exam Vital Signs: Vital Signs Temp Pulse Resp BP BP Pulse Ox 09/03/19 22:57 84 222/87 H 09/03/19 22:51 229/77 H 09/03/19 22:22 74 229/77 H 09/03/19 22:07 97.8 F 91 16 242/100 H 97 09/03/19 21:55 97.8 F 91 16 242/100 H 97 Date Exam was Performed: 09/03/19 Time Exam was Performed: 23:01 - Assessment/Plan Plan: Assessment Acuity = acute Site and laterality = hypertensive urgency Etiology = unknown Manifestations = none Location of injury = Home Lab values = CBC unremarkable creatinine elevated 1.4 consistent chronic renal failure stage G3 B Plan I did discuss with her options about bringing her blood pressure down because she is asymptomatic she elected to forego no further treatment is going to follow-up with her primary care on Wednesday risks benefits and alternatives were discussed. She will return to the emergency department if she develops any symptoms. This note was dictated using [employer] voice recognition software please call with any questions on syntax or grammar.
[2019-09-03 22:59] VITALS: BP 222/87; PULSE 84
== END 2019-09-03 23:10 | disposition home or self-care (01) ==
LOC: JP.ED 21:41
DX: I16.0 Hypertensive urgency (principal); I48.91 Unspecified atrial fibrillation; I25.10 Atherosclerotic heart disease of native coronary artery without angina pectoris; I10 Essential (primary) hypertension; K21.9 Gastro-esophageal reflux disease without esophagitis; Z88.5 Allergy status to narcotic agent; Z88.8 Allergy status to other drugs, medicaments and biological substances; Z88.2 Allergy status to sulfonamides; Z79.01 Long term (current) use of anticoagulants
CPT/HCPCS: 36415; 80048; 85025; 99283; A9270

== ENCOUNTER 2020-12-26 11:16 | Emergency (ER) | payer MEDICARE, BC ==
[2020-12-26 11:43] VITALS: BP 202/67; PULSE 81
--- NOTE | 2020-12-26 12:17 | EDM.PDOC ---
ED HPI GENERAL MEDICAL PROBLEM - General Chief Complaint: Gastrointestinal Problem Stated Complaint: bleeding in stools Time Seen by Provider: 12/26/20 12:00 Source of Information: Reports: Patient, Old Records History Limitations: Reports: No Limitations - History of Present Illness INITIAL COMMENTS - FREE TEXT/NARRATIVE: 85 yo female presents with painless bright red rectal bleeding yesterday and today. There was blood passage both with and without a BM. No nausea or abdominal pain. Is on warfarin. Has a remote hx of hemorrhoids. Not dizzy with standing. Onset: Unknown/Unsure Onset Date: 12/25/20 Duration: Intermittent, Waxing/Waning Location: Reports: Other (blood per rectum) Quality: Reports: Other (no pain) Severity: Mild Improves with: Reports: None Worsens with: Reports: Other (unknown) Context: Reports: Other (See HPI) Associated Symptoms: Reports: No Other Symptoms. Denies: Diaphoresis, Nausea/Vomiting, Shortness of Breath Treatments BUZZLE BUFFER: Reports: Other (see below) (none) - Related Data Allergies Allergy/AdvReac Type Severity Reaction Status Date / Time hydrocodone Allergy Cannot Verified 12/26/20 11:51 Remember sulfamethoxazole Allergy Cannot Verified 12/26/20 11:51 [From Bactrim] Remember trimethoprim [From Bactrim] Allergy Cannot Verified 12/26/20 11:51 Remember codeine phosphate AdvReac Nausea and Verified 12/26/20 11:51 [From Tylenol-Codeine #3] Vomiting meperidine HCl [From Demerol] AdvReac Nausea and Verified 12/26/20 11:51 Vomiting nitrofurantoin AdvReac Nausea and Verified 12/26/20 11:51 Vomiting oxycodone HCl [From Roxicet] AdvReac Nausea and Verified 12/26/20 11:51 Vomiting sertraline AdvReac Diarrhea Verified 12/26/20 11:51 Home Meds: Home Meds LORazepam [Ativan] 0.5 mg PO BID PRN 07/09/13 [History] Multivitamin [Multi-Vitamin Daily] 1 each PO DAILY 07/09/13 [History] Potassium Chloride [Klor-Con M20] 10 meq PO BID 11/13/14 [History] Warfarin Sliding Scale [Coumadin Sliding Scale] 1.25 mg PO ASDIRECTED 11/13/14 [History] Warfarin [Coumadin] 2.5 mg PO ASDIRECTED 11/15/14 [History] Pantoprazole Sodium [Protonix] 40 mg PO DAILY 01/14/15 [History] Losartan/Hydrochlorothiazide [Losartan-HCTZ 100-25 MG] 1 tab PO DAILY 11/09/16 [History] Triamcinolone Acetonide 1 film TOP TID 11/09/16 [History] Vitamin B Complex 0.5 tab PO DAILY 11/09/16 [History] Metoprolol Tartrate 100 mg PO BID 08/23/17 [History] Calcium Carbonate/Vitamin D3 [Calcium 600-D3 20Mcg(800 Unit)] 1 each PO DAILY 12/26/20 [History] Diphenoxylate HCl/Atropine [Diphenoxylate-Atrop 2.5-0.025] 1 each PO DAILY 12/26/20 [History] Famotidine 40 mg PO DAILY 12/26/20 [History] [place]-3 Fatty Acids/Fish Oil [Fish Oil 1,000 mg Capsule] 1 each PO DAILY 12/26/20 [History] amLODIPine Besylate [Amlodipine Besylate] 5 mg PO DAILY 12/26/20 [History] Past Medical History HEENT History: Reports: Cataract, Hard of Hearing, Impaired Vision Cardiovascular History: Reports: Afib, CAD, High Cholesterol, Hypertension, Pacemaker, SOB on Exertion, Other (See Below) Other Cardiovascular History: mitral and tricuspid valve disease Respiratory History: Reports: SOB Other Respiratory History: na Gastrointestinal History: Reports: Cholelithiasis, Chronic Diarrhea, GERD, Hiatal Hernia, Irritable Bowel Syndrome, Other (See Below) Other Gastrointestinal History: esophageal stricture Genitourinary History: Reports: None 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: , Prolapsed Uterus Musculoskeletal History: Reports: Osteoarthritis, Osteoporosis Neurological History: Reports: None Psychiatric History: Reports: Anxiety Endocrine/Metabolic History: Reports: Osteoporosis, Other (See Below) Other Endocrine/Metabolic History: thyroid disease, mulyinodular goiter Hematologic History: Reports: Anesthesia Reaction, Anticoagulation Therapy Oncologic (Cancer) History: Reports: Breast Dermatologic History: Reports: None - Infectious Disease History Infectious Disease History: Reports: C-Difficile, Chicken Pox - Past Surgical History Head Surgeries/Procedures: Reports: None HEENT Surgical History: Reports: Tonsillectomy Cardiovascular Surgical History: Reports: Pacer Respiratory Surgical History: Reports: None GI Surgical History: Reports: Cholecystectomy, Colonoscopy, EGD, Polypectomy Female Surgical History: Reports: Hysterectomy, Mastectomy Endocrine Surgical History: Reports: Thyroid Biopsy Neurological Surgical History: Reports: None Musculoskeletal Surgical History: Reports: None Oncologic Surgical History: Reports: Mastectomy, Other (See Below) Other Oncologic Surgeries/Procedures: Right Mastectomy Dermatological Surgical History: Reports: None Social & Family History - Family History Family Medical History: No Pertinent Family History - Tobacco Use Tobacco Use Status *Q: Never Tobacco User - Caffeine Use Caffeine Use: Reports: Coffee - Living Situation & Occupation Living situation: Reports: , Alone Occupation: Retired ED ROS GENERAL - Review of Systems Review Of Systems: See Below Constitutional: Reports: No Symptoms HEENT: Reports: No Symptoms Respiratory: Reports: No Symptoms Cardiovascular: Reports: No Symptoms GI/Abdominal: Reports: Bloody Stool, Hematochezia. Denies: Black Stool, Constipation, Diarrhea, Flatus, Melena, Vomiting : Reports: No Symptoms Musculoskeletal: Reports: No Symptoms Skin: Reports: No Symptoms Neurological: Reports: No Symptoms ED EXAM, GI/ABD - Physical Exam Exam: See Below Exam Limited By: No Limitations General Appearance: Alert, WD/WN, No Apparent Distress Eyes: Bilateral: Normal Appearance Ears: Normal External Exam, Normal Canal, Hearing Grossly Normal Nose: Normal Inspection, No Blood Throat/Mouth: Normal Inspection, Normal Lips, Normal Oropharynx, Normal Voice, No Airway Compromise Head: Atraumatic, Normocephalic Neck: Normal Inspection Respiratory/Chest: No Respiratory Distress, Lungs Clear, No Accessory Muscle Use Cardiovascular: Regular Rate, Rhythm, No Edema GI/Abdominal Exam: Soft, Non-Tender, No Distention, Abnormal Bowel Sounds (increased). No: Distended, Guarding, Rigid, Rebound, Tender Back Exam: Normal Inspection. No: CVA Tenderness (R), CVA Tenderness (L) Extremities: Normal Inspection, Normal Range of Motion, Non-Tender, No Pedal Edema Neurological: Alert, Oriented, CN II-XII Intact, Normal Cognition, No Motor/Sensory Deficits Psychiatric: Normal Affect, Normal Mood Skin Exam: Warm, Dry, Intact, Normal Color, No Rash ED ABDOMINAL/GI PROCEDURES - Additional/Other Procedure(s) Procedure(s) (Free Text): Anoscopy reveals the presence of anal fissures. No active current bleeding. No other pathology noted. Course - Vital Signs Last Recorded V/S: Last Vital Signs Temp 36.4 C 12/26/20 11:50 Pulse 81 12/26/20 11:50 Resp 12 12/26/20 11:50 BP 202/67 H 12/26/20 11:50 Pulse Ox 99 12/26/20 11:50 Orthostatic Blood Pressure [ 190/60 Standing] Orthostatic Blood Pressure [ 184/52 Sitting] Orthostatic Blood Pressure [ 184/54 Supine] - Orders/Labs/Meds Orders: Active Orders 24 hr Category Date Time Status Orthostatic Vital Signs [RC] ASDIRECTED Care 12/26/20 11:58 Active polyethylene glycoL 3350 [MiraLAX] Med 12/26/20 12:21 Once 17 gm PO ONETIME ONE Labs: Laboratory Tests 12/26/20 12/26/20 Range/Units 11:49 11:49 WBC 8.8 (4.5-11.0) K/uL RBC 4.24 (3.30-5.50) M/uL Hgb 12.8 (12.0-15.0) g/dL Hct 38.0 (36.0-48.0) % MCV 90 (80-98) fL MCH 30 (27-31) pg MCHC 34 (32-36) % Plt Count 330 (150-400) K/uL PT 23.4 H (9.5-12.0) sec INR 2.18 H (0.80-1.20) Departure - Departure Time of Disposition: 12:30 Disposition: Home, Self-Care 01 Condition: Good Clinical Impression: Anal fissure - Discharge Information *PRESCRIPTION DRUG MONITORING PROGRAM REVIEWED*: Not Applicable *COPY OF PRESCRIPTION DRUG MONITORING REPORT IN PATIENT CARLOS: Not Applicable Instructions: Anal Fissure, Adult, [id number] Referrals: Shahram Hirsch MD [Primary Care Provider] - Forms: ED Department Discharge Additional Instructions: Use Anusol suppository every 12 hrs. Take Miralax every 12 hrs to keep stools soft. Take acetaminophen for any pain relief. Hold your warfarin today and tomorrow. Recheck with your provider by next Wednesday. Sepsis Event Note (ED) - Focused Exam Vital Signs: Vital Signs Temp Pulse Resp BP Pulse Ox 12/26/20 11:50 36.4 C 81 12 202/67 H 99 12/26/20 11:42 36.4 C 81 12 202/67 H 99 - My Orders Last 24 Hours: My Active Orders 12/26/20 11:58 Orthostatic Vital Signs [RC] ASDIRECTED 12/26/20 12:21 polyethylene glycoL 3350 [MiraLAX] 17 gm PO ONETIME ONE - Assessment/Plan Last 24 Hours: My Active Orders 12/26/20 11:58 Orthostatic Vital Signs [RC] ASDIRECTED 12/26/20 12:21 polyethylene glycoL 3350 [MiraLAX] 17 gm PO ONETIME ONE
[2020-12-26] MEDS ORDERED: Polyethylene Glycol 3350 Powder 17 GM Packet PO ONE (12:21)
== END 2020-12-26 12:39 | disposition home or self-care (01) ==
LOC: JP.ED 11:16
DX: K60.2 Anal fissure, unspecified (principal); I48.91 Unspecified atrial fibrillation; I25.10 Atherosclerotic heart disease of native coronary artery without angina pectoris; E78.00 Pure hypercholesterolemia, unspecified; I10 Essential (primary) hypertension; Z88.5 Allergy status to narcotic agent; Z88.1 Allergy status to other antibiotic agents; Z88.8 Allergy status to other drugs, medicaments and biological substances; Z79.01 Long term (current) use of anticoagulants; Z79.899 Other long term (current) drug therapy; Z95.0 Presence of cardiac pacemaker
CPT/HCPCS: 36415; 46600; 85027; 85610; 99283-25

== ENCOUNTER 2022-05-04 23:58 | Emergency (ER) | payer MEDICARE, BC ==
[2022-05-05 00:12] VITALS: BP 194/80; PULSE 85
== END 2022-05-05 01:29 | disposition home or self-care (01) ==
LOC: JP.ED 23:58
DX: K64.8 Other hemorrhoids (principal); I25.10 Atherosclerotic heart disease of native coronary artery without angina pectoris; I10 Essential (primary) hypertension; Z88.5 Allergy status to narcotic agent; Z88.2 Allergy status to sulfonamides; Z79.899 Other long term (current) drug therapy; Z79.01 Long term (current) use of anticoagulants; Z90.49 Acquired absence of other specified parts of digestive tract; Z90.710 Acquired absence of both cervix and uterus
CPT/HCPCS: 36415; 85025; 85610; 99283